=== PATIENT | female | born 1975 | race African-American/Black ===

== ENCOUNTER 2017-05-16 18:28 | Emergency (ER) | payer OTHER ==
[2017-05-16] MEDS ORDERED: KETOROLAC 30 MG/ML 1 ML VIAL IM STA (19:36)
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
--- NOTE | 2017-05-16 19:58 | XR ---
EXAMINATION: XR chest 2V DATE AND TIME: 05/16/2017 7:52 PM ORDERING PROVIDER: Arnav Cavazos MD CLINICAL INDICATION: Pain TECHNIQUE: PA and lateral COMPARISON: None. DESCRIPTION: The lungs are clear. The pleural spaces are negative. The cardiac silhouette is not enlarged. The mediastinal and pleural silhouettes are unremarkable. The skeletal structures are intact without focal findings. The soft tissues are unremarkable - other than bilateral prominent nipple shadows, more prominent on the right. IMPRESSION: NO ACUTE PROCESS.
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
[2017-05-16 20:52] VITALS: BP 134/59; PULSE 60; RESP 17; TEMP 98.7
== END 2017-05-16 20:59 | disposition home or self-care (01) ==
LOC: EC 18:28
DX: S16.1XXA Strain of muscle, fascia and tendon at neck level, initial encounter (principal); R07.89 Other chest pain; R51 Headache; F17.200 Nicotine dependence, unspecified, uncomplicated; V43.52XA Car driver injured in collision with other type car in traffic accident, initial encounter; Y92.89 Other specified places as the place of occurrence of the external cause
CPT/HCPCS: 71046; 72125; 99284; 96372; J1885

== ENCOUNTER 2017-09-30 14:29 | Observation (INO) | payer OTHER ==
[2017-09-30] MEDS ORDERED: SODIUM CHLORIDE 0.9% 500 ML IV STA (16:46)
[2017-09-30] MEDS ORDERED: SODIUM CHLORIDE 0.9% 1,000 ML IV STA (16:46)
[2017-09-30] MEDS ORDERED: MECLIZINE 12.5 MG TAB PO STA (16:46)
[2017-09-30 17:30] LABS: Amphetamine Screen,Urine Detected (NotDetected); Benzodiazepines Screen,Urine Detected (NotDetected); Cocaine Screen,Urine Not Detected (NotDetected); Opiate Screen,Urine Not Detected (NotDetected); Phencyclidine Screen,Urine Not Detected (NotDetected); Urn Cannabinoid Scrn Detected (NotDetected)
[2017-09-30 17:31] LABS: Barbiturate Screen,Urine Not Detected (NotDetected); Methadone Screen, Urine Not Detected (NotDetected); Oxycodone Screen, Urine Not Detected (NotDetected); Tricyclic Antidepressant,Urine Not Detected (NotDetected)
[2017-09-30 17:31] LABS: Basophils % (A) 0 %; Eosinophils # (A) 0.2 k/uL (0-0.7); Eosinophils % (A) 3 %; HCT 38.9 % (34.0-46.0); HGB 12.7 gm/dL (11.4-16.0); Lymphocytes # (A) 2.3 k/uL (1.0-4.8); Lymphocytes % (A) 30 %; MCH 30.1 pg (25.0-35.0); MCHC 32.6 g/dL (31.0-37.0); MCV 92.2 fL (80.0-100.0); Mean Platelet Volume 6.8; Monocytes # (A) 0.5 k/uL (0-1.0); Monocytes % (A) 6 %; Neutrophils # (A) 4.5 k/uL (1.3-7.7); Neutrophils % (A) 59 %; Platelet Count 267 k/uL (150-450); RBC 4.22 m/uL (3.80-5.40); RDW 12.9 % (11.5-15.5); WBC 7.6 k/uL (3.8-10.6)
[2017-09-30 17:32] LABS: Appearance,Urine Cloudy (Clear); Bilirubin,Urine Negative (Negative); Blood,Urine Negative (Negative); Color,Urine Yellow; Glucose,Urine (UA) Negative (Negative); Ketones,Urine Negative (Negative); Leukocyte Esterase,Urine Trace (Negative); Mucus,Urine Few /hpf; Nitrite,Urine Negative (Negative); Protein,Urine Negative (Negative); Specific Gravity,Urine 1.021 (1.001-1.035); Squamous Epithelial Cell,Urine 8 /hpf (0-4); Urobilinogen,Urine <2.0 mg/dL (<2.0); WBC,Urine 1 /hpf (0-5)
[2017-09-30 17:43] LABS: ALT 27 U/L (9-52); AST 18 U/L (14-36); Albumin 3.5 g/dL (3.5-5.0); Alkaline Phosphatase 52 U/L (38-126); Anion Gap 8 mmol/L; Blood Urea Nitrogen 8 mg/dL (7-17); Calcium 8.7 mg/dL (8.4-10.2); Carbon Dioxide 23 mmol/L (22-30); Chloride 108 mmol/L (98-107); Glucose 72 mg/dL (74-99); Potassium 3.7 mmol/L (3.5-5.1); Sodium 139 mmol/L (137-145); Total Bilirubin 0.5 mg/dL (0.2-1.3); Total Protein 5.9 g/dL (6.3-8.2)
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
[2017-09-30] MEDS ORDERED: SODIUM CHLORIDE 0.9% 1,000 ML IV ONE (18:07)
--- NOTE | 2017-09-30 18:39 | CT ---
EXAMINATION TYPE: CT brain wo con DATE OF EXAM: 09/30/2017 COMPARISON: NONE HISTORY: 42-year-old female with headache and pain, sinus congestion TECHNIQUE: Examination was done in axial plane without intravenous contrast. Coronal and sagittal r econstructions performed. CT DLP: 814.8 mGycm Automated exposure control for dose reduction was used. FINDINGS: There is no evidence of acute intracranial hemorrhage, acute ischemic changes, mass, mass-effect, or extra-axial fluid collection. There is no effacement of cerebral sulci or basal subarachnoid cister ns. There is no hydrocephalus. There is no midline shift. Jensen-white matter distinction is preserv ed. Paranasal sinuses will be reported separately. Mastoid air cells are well pneumatized. IMPRESSION: No acute intracranial abnormality seen.
--- NOTE | 2017-09-30 18:41 | CT ---
EXAMINATION TYPE: CT sinus wo con DATE OF EXAM: 09/30/2017 COMPARISON: NONE HISTORY: 42-year-old female complains of dizziness, headache, and sinus congestion. TECHNIQUE: Contiguous axial scanning of the paranasal sinuses without IV contrast. Coronal and sagitt al reconstructions performed. CT DLP: 703.7 mGycm Automated exposure control for dose reduction was used. FINDINGS: Mucosal thickening posterior right ethmoid air cells otherwise, there the frontal, left ethmoid, sphe noid, and maxillary sinuses are well-pneumatized. No air-fluid levels. No reactive mary-osteogenesis or destruction of the sinus [place]. Slight rightward nasal septal deviation. The osteomeatal complexes are patent. Orbits and globes are intact. IMPRESSION: ONLY MILD MUCOSAL THICKENING IN THE POSTERIOR RIGHT ETHMOID AIR CELLS AND SLIGHT RIGHTWARD NASAL SEPT AL DEVIATION. NO SIGNIFICANT PARANASAL SINUS DISEASE.
[2017-09-30] MEDS ORDERED: NALOXONE 0.4 MG/ML 1 ML VIAL IV PRN (19:09)
[2017-09-30] MEDS ORDERED: ACETAMINOPHEN TAB 325 MG TAB PO PRN (19:09)
[2017-09-30] MEDS ORDERED: ONDANSETRON 4 MG/2 ML VIAL IVP PRN (19:09)
[2017-09-30] MEDS ORDERED: MORPHINE SULFATE 2 MG/ML SYRINGE IV PRN (19:09)
[2017-09-30] MEDS ORDERED: ALPRAZolam 1 MG TAB PO PRN (19:14)
[2017-09-30] MEDS ORDERED: SODIUM CHLORIDE 0.9% 1,000 ML IV SCH (19:15)
[2017-09-30 20:46] VITALS: BMI 24.7
[2017-10-01 07:37] LABS: Basophils % (A) 0 %; Eosinophils # (A) 0.2 k/uL (0-0.7); Eosinophils % (A) 3 %; HCT 35.8 % (34.0-46.0); HGB 11.7 gm/dL (11.4-16.0); Lymphocytes % (A) 35 %; MCHC 32.6 g/dL (31.0-37.0); MCV 92.2 fL (80.0-100.0); Mean Platelet Volume 6.6; Monocytes # (A) 0.3 k/uL (0-1.0); Monocytes % (A) 6 %; Neutrophils % (A) 53 %; Platelet Count 264 k/uL (150-450); RBC 3.89 m/uL (3.80-5.40); WBC 5.8 k/uL (3.8-10.6)
[2017-10-01 07:44] LABS: Anion Gap 5 mmol/L; Blood Urea Nitrogen 6 mg/dL (7-17); Calcium 8.2 mg/dL (8.4-10.2); Carbon Dioxide 23 mmol/L (22-30); Chloride 111 mmol/L (98-107); Glucose 91 mg/dL (74-99); Potassium 3.7 mmol/L (3.5-5.1); Sodium 139 mmol/L (137-145)
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
[2017-10-01] MEDS ORDERED: FLUTICASONE 50MCG/SPRAY NASAL 16GM EA NOSTRIL SCH (09:00)
[2017-10-01] MEDS ORDERED: LORATADINE 10 MG TAB PO SCH (09:00)
[2017-10-01] MEDS ORDERED: CYPROHEPTADINE 4 MG TABLET PO SCH (09:00)
[2017-10-01] MEDS ORDERED: SODIUM CHLORIDE 0.65% NASAL SPRAY 44 ML BTL INTRANASAL SCH (09:00)
[2017-10-01] MEDS ORDERED: MULTIVITAMINS, THERA 1 EACH TAB PO SCH (12:00)
[2017-10-01 12:08] VITALS: BP 145/70; PULSE 57; RESP 18; TEMP 98.2
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
== END 2017-10-01 14:00 | disposition home or self-care (01) ==
LOC: EC 14:29 → 3OBS 19:06
PROVIDERS: ADMIT Hospitalist; ATTEND Hospitalist
DX: I95.1 Orthostatic hypotension (principal); E86.0 Dehydration; K21.9 Gastro-esophageal reflux disease without esophagitis; I10 Essential (primary) hypertension; F41.9 Anxiety disorder, unspecified; R51 Headache; R26.81 Unsteadiness on feet; R82.5 Elevated urine levels of drugs, medicaments and biological substances; G43.909 Migraine, unspecified, not intractable, without status migrainosus; F32.9 Major depressive disorder, single episode, unspecified; F17.200 Nicotine dependence, unspecified, uncomplicated; Z82.61 Family history of arthritis; Z83.3 Family history of diabetes mellitus; Z82.49 Family history of ischemic heart disease and other diseases of the circulatory system; Z84.89 Family history of other specified conditions; Z79.899 Other long term (current) drug therapy; Z79.51 Long term (current) use of inhaled steroids; Z87.828 Personal history of other (healed) physical injury and trauma
CPT/HCPCS: 96360 ×2; 99285 ×2; 36415; 93005; 80053; 80048; 84484; 85025 ×2; 81001; 80306; 70450; 70486; G0378 ×2

== ENCOUNTER 2018-07-25 13:34 | Emergency (ER) | payer OTHER ==
--- NOTE | 2018-07-25 15:43 | ED ---
General Adult HPI - General Chief complaint: Upper Respiratory Infection Stated complaint: sinus infection Time Seen by Provider: 07/25/18 14:23 Source: patient, RN notes reviewed, old records reviewed Mode of arrival: ambulatory Limitations: no limitations - History of Present Illness Initial comments: 42-year-old female patient presents ED approximately 3 weeks of waxing and waning maxillary sinus pressure. Patient also reports some nasal drainage. Patient denies any other acute complaints. Patient states that she is not . Systemic: Pt denies fatigue, myalgia, fever/chills, rash. Pt denies weakness, night sweats, weight loss. Neuro: Pt denies headache, visual disturbances, syncope or pre-syncope. HEENT: Pt denies ocular discharge or irritation, otalgia, rhinorrhea, pharyngitis or notable lymphadenopathy. Cardiopulmonary: Pt denies chest pain, SOB, heart palpitations, dyspnea on exertion. Abdominal/GI: Pt denies abdominal pain, n/v/d. : Pt denies dysuria, burning w/ urination, frequency/urgency. Denies new onset urinary or bowel incontinence. MSK: Pt denies myalgia, loss of strength or function in extremities. Neuro: Pt denies new onset weakness, paresthesias. - Related Data Home Medications Medication Instructions Recorded Confirmed ALPRAZolam [Xanax] 1 mg PO BID PRN 05/16/17 07/25/18 Cetirizine HCl [Zyrtec] 10 mg PO DAILY 09/30/17 07/25/18 Cyproheptadine [Cyproheptadine HCl] 4 mg PO DAILY 09/30/17 07/25/18 Fluticasone Nasal [place] [Flonase 2 spr EA NOSTRIL DAILY 09/30/17 07/25/18 Nasal [place]] Multivitamins, Thera [Multivitamin 1 tab PO DAILY 09/30/17 07/25/18 (formulary)] Sodium Chloride [Saline Nasal 2 spray EA NOSTRIL DAILY 09/30/17 07/25/18 [place]] Previous Rx's Medication Instructions Recorded Acetaminophen Tab [Tylenol] 650 mg PO Q6HR PRN tab 10/01/17 Amoxicillin/Potassium Clav 1 each PO Q12HR #20 tab 07/25/18 [Augmentin 875-125 Tablet] Allergies Allergy/AdvReac Type Severity Reaction Status Date / Time No Known Allergies Allergy Verified 07/25/18 13:59 Review of Systems ROS Statement: Those systems with pertinent positive or pertinent negative responses have been documented in the HPI. ROS Other: All systems not noted in ROS Statement are negative. Past Medical History Past Medical History: No Reported History, GERD/Reflux, Hypertension History of Any Multi-Drug Resistant Organisms: None Reported Past Surgical History: No Surgical Hx Reported Past Anesthesia/Blood Transfusion Reactions: No Reported Reaction Past Psychological History: Anxiety Smoking Status: Current some day smoker Past Alcohol Use History: None Reported Past Drug Use History: Marijuana - Past Family History Mother Family Medical History: Diabetes Mellitus, Hypertension, Rheumatoid Arthritis (RA) Additional Family Medical History / Comment(s): Lupus General Exam - General Exam Comments Initial Comments: Constitutional: NAD, AOX3, Pt has pleasant affect. HEENT: NC/AT, trachea midline, neck supple, no lymphadenopathy. Posterior pharynx non erythematous, without exudates. External ears appear normal, without discharge. Mucous membranes moist. Eyes PERRLA, EOM intact. There is no scleral icterus. No pallor noted. Maxillary pressure reproducible by palpation. Cardiopulmonary: RRR, no murmurs, rubs or gallops, no JVD noted. Lungs CTAB in anterior and posterior og. No peripheral edema. Abdominal exam: Abdomen soft and non-distended. Abdomen non-tender to palpation in all 4 quadrants. Bowel sounds active in LLQ. No hepatosplenomegaly. No ecchymosis Neuro: CN II-XII grossly intact. No nuchal rigidity. MSK: No posterior calf tenderness bilaterally, homans sign negative bilaterally. Posterior tibialis and radial pulse +2 bilaterally. Sensation intact in upper and lower extremities. Full active ROM in upper and lower extremities, 5/5 stregnth. Limitations: no limitations Course Vital Signs 07/25/18 13:57 Temperature 98.4 F Pulse Rate 77 Respiratory 20 Rate Blood Pressure 116/78 O2 Sat by Pulse 100 Oximetry Medical Decision Making - Medical Decision Making 42-year-old female patient presents ED approximately 3 weeks of waxing and waning maxillary sinus pressure. Patient also reports some nasal drainage. Patient denies any other acute complaints. Patient states that she is not . Patient was in stable, afebrile. Physical exam displayed medically sinus pressure reproducible upon palpation. Patient discharged with prescription for Augmentin. Patient to follow up with primary care provider 12 days. Patient return to ER physician worsens in anyway. Case discussed with Dr. Levy. Disposition Clinical Impression: Sinusitis Disposition: HOME SELF-CARE Condition: Stable Instructions (If sedation given, give patient instructions): Sinusitis (ED) Additional Instructions: Patient to adhere to previously discussed treatment plan and will take medication(s) as directed. Patient to follow up with PCP in 1-2 days. Patient to return to ED if symptoms do not improve. Please follow-up with primary care physician in one to 2 days. Please return to ER if condition worsens in anyway. Prescriptions: Amoxicillin/Potassium Clav [Augmentin 875-125 Tablet] 1 each PO Q12HR #20 tab Is patient prescribed a controlled substance at d/c from ED?: No Referrals: Nonstaff,Physician [Primary Care Provider] - 1-2 days
[2018-07-25 15:52] VITALS: BP 144/73; PULSE 65; RESP 16; TEMP 97.3
== END 2018-07-25 15:51 | disposition home or self-care (01) ==
LOC: EC 13:34
DX: J32.9 Chronic sinusitis, unspecified (principal); F17.200 Nicotine dependence, unspecified, uncomplicated; Z79.51 Long term (current) use of inhaled steroids; Z79.899 Other long term (current) drug therapy
CPT/HCPCS: 99283

== ENCOUNTER 2018-12-31 10:24 | Emergency (ER) | payer OTHER ==
[2018-12-31 10:30] VITALS: BP 137/86; PULSE 69; RESP 17; TEMP 97.9
--- NOTE | 2018-12-31 11:22 | ED ---
General Adult HPI - General Chief complaint: Vaginal Bleeding Stated complaint: female Time Seen by Provider: 12/31/18 10:32 Source: patient, RN notes reviewed, old records reviewed Mode of arrival: ambulatory Limitations: no limitations - History of Present Illness Initial comments: Patient is a 43-year-old female complains of vaginal burning and itching and erythema. She reports some extra past 2 days. Symptoms started she had some diarrhea which she believes that she went away. She denies any dysuria at this time. She reports that there is a possibility of STDs. Patient states that she has had no fevers or chills, denies any abdominal pain at this time. - Related Data Home Medications Medication Instructions Recorded Confirmed ALPRAZolam [Xanax] 1 mg PO BID PRN 05/16/17 12/31/18 Multivitamins, Thera [Multivitamin 1 tab PO DAILY 09/30/17 12/31/18 (formulary)] Baclofen [Lioresal] 10 mg PO TID PRN 12/31/18 12/31/18 Cyanocobalamin (Vitamin B-12) 1,000 mcg PO DAILY 12/31/18 12/31/18 [Vitamin B-12] traZODone HCL 150 mg PO HS 12/31/18 12/31/18 Previous Rx's Medication Instructions Recorded Clotrimazole [Clotrimazole 2% (3 1 applicator VAGINAL DAILY 3 Days 12/31/18 day)] Fluconazole [Diflucan] 150 mg PO ONCE #3 tab 12/31/18 Allergies Allergy/AdvReac Type Severity Reaction Status Date / Time No Known Allergies Allergy Verified 12/31/18 10:52 Review of Systems ROS Statement: Those systems with pertinent positive or pertinent negative responses have been documented in the HPI. ROS Other: All systems not noted in ROS Statement are negative. Past Medical History Past Medical History: No Reported History, GERD/Reflux, Hypertension History of Any Multi-Drug Resistant Organisms: None Reported Past Surgical History: No Surgical Hx Reported Past Anesthesia/Blood Transfusion Reactions: No Reported Reaction Past Psychological History: Anxiety Smoking Status: Current some day smoker Past Alcohol Use History: None Reported Past Drug Use History: Marijuana - Past Family History Mother Family Medical History: Diabetes Mellitus, Hypertension, Rheumatoid Arthritis (RA) Additional Family Medical History / Comment(s): Lupus General Exam - General Exam Comments Initial Comments: 43-year-old female. Alert and oriented. No significant distress. Limitations: no limitations General appearance: alert, in no apparent distress Head exam: Present: atraumatic, normocephalic, normal inspection Eye exam: Present: normal appearance, PERRL, EOMI. Absent: scleral icterus, conjunctival injection, periorbital swelling ENT exam: Present: normal exam, mucous membranes moist Neck exam: Present: normal inspection. Absent: tenderness, meningismus, lymphadenopathy Respiratory exam: Present: normal lung sounds bilaterally. Absent: respiratory distress, wheezes, rales, rhonchi, stridor Cardiovascular Exam: Present: regular rate, normal rhythm, normal heart sounds. Absent: systolic murmur, diastolic murmur, rubs, gallop, clicks GI/Abdominal exam: Present: soft, normal bowel sounds. Absent: distended, tenderness, guarding, rebound, rigid External exam: Present: normal external exam, erythema Speculum exam: Present: erythema, vaginal discharge (She has waited here in vaginal discharge.). Absent: normal speculum exam By manual exam: Present: normal by manual exam, cervical motion tenderness Extremities exam: Present: normal inspection, full ROM, normal capillary refill. Absent: tenderness, pedal edema, joint swelling, calf tenderness Back exam: Present: normal inspection Neurological exam: Present: alert, oriented X3, CN II-XII intact Psychiatric exam: Present: normal affect, normal mood Skin exam: Present: warm Course Vital Signs 12/31/18 10:26 Temperature 97.9 F Pulse Rate 69 Respiratory 17 Rate Blood Pressure 137/86 O2 Sat by Pulse 97 Oximetry Medical Decision Making - Medical Decision Making Patient's 43-year-old female presents today for concerns for vaginal itching, erythema. Patient reports possibly menses. She did have adherent white discharge over vaginal vault. Concern for initially used infection. Her Trichomonas test was positive. Patient was treated with Rocephin and Flagyl and azithromycin for dental referral STDs. Chlamydia and gonorrhea testing are pending. Urinalysis is negative for any significant infection. Discussed also discharging the Patient with a course for Diflucan for concerns for intravaginal yeast infection. Patient is history plan will comply. Discussed follow-up with PCP and [employer]. - Lab Data Lab Results 12/31/18 12/31/18 12/31/18 Range/Units 11:19 11:19 11:19 Urine Color Yellow Urine Appearance Cloudy H (Clear) Urine pH 7.5 (5.0-8.0) Ur Specific [place] 1.021 (1.001-1.035) Urine Protein Negative (Negative) Urine Glucose (UA) Negative (Negative) Urine Ketones Negative (Negative) Urine Blood Negative (Negative) Urine Nitrite Negative (Negative) Urine Bilirubin Negative (Negative) Urine Urobilinogen <2.0 (<2.0) mg/dL Ur Leukocyte Esterase Moderate H (Negative) Urine RBC 2 (0-5) /hpf Urine WBC 3 (0-5) /hpf Ur Squamous Epith Cells 7 H (0-4) /hpf Urine Bacteria Rare H (None) /hpf Urine Mucus Rare H (None) /hpf Urine HCG, Qual Not Detected (Not Detectd) Trichomonas Ag (Rapid) Positive H (Negative) Disposition Clinical Impression: Trichomonas infection, Yeast infection Disposition: HOME SELF-CARE Condition: Good Instructions (If sedation given, give patient instructions): Trichomoniasis (ED), Yeast Infection (ED) Additional Instructions: Please use medication as discussed. Please follow up with family doctor if symptoms have not improved over the next two days. Please return to the emergency room if your symptoms increase or worsen or for any other concerns. Patient should follow-up with your [employer] as well. No intercourse for the next 2 weeks. Patient should inform all sexual partners for concern for Trichomonas infection. Prescriptions: Clotrimazole [Clotrimazole 2% (3 day)] 1 applicator VAGINAL DAILY 3 Days Fluconazole [Diflucan] 150 mg PO ONCE #3 tab Is patient prescribed a controlled substance at d/c from ED?: No Referrals: None,Stated [Primary Care Provider] - 1-2 days Time of Disposition: 12:39
[2018-12-31] MEDS ORDERED: metroNIDAZOLE 500 MG TAB PO STA (12:20)
[2018-12-31] MEDS ORDERED: cefTRIAXone 250 MG VIAL IM STA (12:20)
[2018-12-31] MEDS ORDERED: AZITHROMYCIN 500 MG TAB PO STA (12:20)
[2018-12-31 12:23] LABS: Appearance,Urine Cloudy (Clear); Bacteria,Urine Rare /hpf; Bilirubin,Urine Negative (Negative); Blood,Urine Negative (Negative); Color,Urine Yellow; Glucose,Urine (UA) Negative (Negative); Ketones,Urine Negative (Negative); Leukocyte Esterase,Urine Moderate (Negative); Mucus,Urine Rare /hpf; Nitrite,Urine Negative (Negative); PH, Urine 7.5 (5.0-8.0); Protein,Urine Negative (Negative); RBC,Urine 2 /hpf (0-5); Specific Gravity,Urine 1.021 (1.001-1.035); Squamous Epithelial Cell,Urine 7 /hpf (0-4); Urobilinogen,Urine <2.0 mg/dL (<2.0)
[2019-01-01 14:04] LABS: C. trachomatis,PCR Negative (Neg,Equiv); Chlamydia trachomatis Source Vagina
[2019-01-01 14:22] LABS: N. gonorrhoeae,PCR Negative (Neg,Equiv); Neisseria Source Vagina
== END 2018-12-31 13:11 | disposition home or self-care (01) ==
LOC: EC 10:24
DX: A59.9 Trichomoniasis, unspecified (principal); B37.9 Candidiasis, unspecified; F41.9 Anxiety disorder, unspecified; F17.200 Nicotine dependence, unspecified, uncomplicated; Z79.899 Other long term (current) drug therapy
CPT/HCPCS: 81001; 81025; 87808; 87491; 87591; 87070; 99284; 96372; J0696

== ENCOUNTER 2019-04-27 17:20 | Emergency (ER) | payer OTHER ==
[2019-04-27 17:32] VITALS: RESP 18
--- NOTE | 2019-04-27 19:26 | XR ---
EXAMINATION TYPE: XR chest 2V DATE OF EXAM: 04/27/2019 COMPARISON: Prior chest x-ray 05/16/2017 HISTORY: Cough TECHNIQUE: Frontal and lateral views of the chest are obtained. FINDINGS: There is no focal air space opacity, pleural effusion, or pneumothorax seen. The cardiac silhouette size is within normal limits. The osseous structures are intact. Nodular density seen ov er the lower chest right greater than left likely representing nipple shadows and not well seen on to day's exam. IMPRESSION: No acute cardiopulmonary process.
--- NOTE | 2019-04-27 19:53 | ED ---
General Adult HPI - General Chief complaint: Upper Respiratory Infection Stated complaint: flu symptoms Time Seen by Provider: 04/27/19 17:33 Source: patient, RN notes reviewed, old records reviewed Mode of arrival: ambulatory Limitations: no limitations - History of Present Illness Initial comments: 44-year-old female patient presents to ED for chief complaint of cough congestion for the last 8 days. Patient also reports sore throat. Denies any fevers. Denies a chance of being . Denies any reason to have immunocompromise state. Denies any other complaints. Systemic: Pt denies fatigue, fever/chills, rash. Pt denies weakness, night sweats, weight loss. Neuro: Pt denies headache, visual disturbances, syncope or pre-syncope. HEENT: Pt denies ocular discharge or irritation, otalgia, rhinorrhea, or notable lymphadenopathy. Cardiopulmonary: Pt denies chest pain, SOB, heart palpitations, dyspnea on exertion. Abdominal/GI: Pt denies abdominal pain, n/v/d. : Pt denies dysuria, burning w/ urination, frequency/urgency. Denies new onset urinary or bowel incontinence. MSK: Pt denies myalgia, loss of strength or function in extremities. Neuro: Pt denies new onset weakness, paresthesias. - Related Data Home Medications Medication Instructions Recorded Confirmed ALPRAZolam [Xanax] 1 mg PO BID PRN 05/16/17 12/31/18 Multivitamins, Thera [Multivitamin 1 tab PO DAILY 09/30/17 12/31/18 (formulary)] Baclofen [Lioresal] 10 mg PO TID PRN 12/31/18 12/31/18 Cyanocobalamin (Vitamin B-12) 1,000 mcg PO DAILY 12/31/18 12/31/18 [Vitamin B-12] traZODone HCL 150 mg PO HS 12/31/18 12/31/18 Previous Rx's Medication Instructions Recorded Clotrimazole [Clotrimazole 2% (3 1 applicator VAGINAL DAILY 3 Days 12/31/18 day)] Fluconazole [Diflucan] 150 mg PO ONCE #3 tab 12/31/18 Allergies Allergy/AdvReac Type Severity Reaction Status Date / Time No Known Allergies Allergy Verified 04/27/19 17:28 Review of Systems ROS Statement: Those systems with pertinent positive or pertinent negative responses have been documented in the HPI. ROS Other: All systems not noted in ROS Statement are negative. Past Medical History Past Medical History: GERD/Reflux, Hypertension History of Any Multi-Drug Resistant Organisms: None Reported Past Surgical History: No Surgical Hx Reported Past Anesthesia/Blood Transfusion Reactions: No Reported Reaction Past Psychological History: Anxiety Smoking Status: Current every day smoker Past Alcohol Use History: None Reported Past Drug Use History: Marijuana - Past Family History Mother Family Medical History: Diabetes Mellitus, Hypertension, Rheumatoid Arthritis (RA) Additional Family Medical History / Comment(s): Lupus General Exam - General Exam Comments Initial Comments: Constitutional: NAD, AOX3, Pt has pleasant affect. HEENT: NC/AT, trachea midline, neck supple, no lymphadenopathy. Posterior pharynx mildly erythematous, without exudates. External ears appear normal, without discharge. Mucous membranes moist. Eyes PERRLA, EOM intact. There is no scleral icterus. No pallor noted. Cardiopulmonary: RRR, no murmurs, rubs or gallops, no JVD noted. Lungs CTAB in anterior and posterior og. No peripheral edema. Abdominal exam: Abdomen soft and non-distended. Abdomen non-tender to palpation in all 4 quadrants. Bowel sounds active in LLQ. No hepatosplenomegaly. No ecchymosis Neuro: CN II-XII grossly intact. No nuchal rigidity. No raccon eyes, no pierre sign, no hemotympanum. No cervical spinal tenderness. MSK: No posterior calf tenderness bilaterally, homans sign negative bilaterally. Posterior tibialis and radial pulse +2 bilaterally. Sensation intact in upper and lower extremities. Full active ROM in upper and lower extremities, 5/5 stregnth. Limitations: no limitations Course Vital Signs 04/27/19 17:28 Temperature 97.9 F Pulse Rate 80 Respiratory 18 Rate Blood Pressure 121/80 O2 Sat by Pulse 98 Oximetry Medical Decision Making - Medical Decision Making 44-year-old female patient presents to ED for chief complaint of cough c ongestion for the last 8 days. Patient also reports sore throat. Denies any fevers. Denies a chance of being . Denies any reason to have immunocompromise state. Denies any other complaints. Patient vital signs are stable, afebrile. Physical exam displayed mildly erythematous posterior pharynx. Influenza A and B are negative. Group A strep is negative. Urine displayed +1 ketones +1 protein. Chest x-ray is negative for acute process. Patient is likely transient viral syndrome, will be discharged to follow up with primary care provider. Further investigations including blood work ordered offered to patient she declined stating that she had labs drawn. Ago and they reportedly normal. Will follow up with primary tomorrow and will return to ER if condition worsens. Case discussed with Dr. Cavazos. - Lab Data Lab Results 04/27/19 04/27/19 04/27/19 Range/Units 18:57 18:57 19:52 Urine Color Urine Appearance (Clear) Urine pH (5.0-8.0) Ur Specific [place] (1.001-1.035) Urine Protein (Negative) Urine Glucose (UA) (Negative) Urine Ketones (Negative) Urine Blood (Negative) Urine Nitrite (Negative) Urine Bilirubin (Negative) Urine Urobilinogen (<2.0) mg/dL Ur Leukocyte Esterase (Negative) Urine RBC (0-5) /hpf Urine WBC (0-5) /hpf Ur Squamous Epith Cells (0-4) /hpf Urine Mucus (None) /hpf Urine HCG, Qual Not Detected (Not Detectd) Influenza Type A RNA Not Detected (Not Detectd) Influenza Type B (PCR) Not Detected (Not Detectd) Group A Strep Rapid Negative (Negative) 04/27/19 Range/Units 19:52 Urine Color Yellow Urine Appearance Cloudy H (Clear) Urine pH 6.5 (5.0-8.0) Ur Specific [place] 1.025 (1.001-1.035) Urine Protein 1+ H (Negative) Urine Glucose (UA) Negative (Negative) Urine Ketones 1+ H (Negative) Urine Blood Negative (Negative) Urine Nitrite Negative (Negative) Urine Bilirubin Negative (Negative) Urine Urobilinogen 2.0 (<2.0) mg/dL Ur Leukocyte Esterase Negative (Negative) Urine RBC 1 (0-5) /hpf Urine WBC 1 (0-5) /hpf Ur Squamous Epith Cells 15 H (0-4) /hpf Urine Mucus Many H (None) /hpf Urine HCG, Qual (Not Detectd) Influenza Type A RNA (Not Detectd) Influenza Type B (PCR) (Not Detectd) Group A Strep Rapid (Negative) Disposition Clinical Impression: Viral syndrome Disposition: HOME SELF-CARE Condition: Stable Instructions (If sedation given, give patient instructions): Viral Syndrome (ED) Additional Instructions: Follow-up with primary care provider tomorrow. Return to ER if condition worsens in any way. Is patient prescribed a controlled substance at d/c from ED?: No Referrals: Nonstaff,Physician [Primary Care Provider] - 1-2 days
[2019-04-27 20:09] LABS: Appearance,Urine Cloudy (Clear); Bilirubin,Urine Negative (Negative); Blood,Urine Negative (Negative); Color,Urine Yellow; Glucose,Urine (UA) Negative (Negative); Ketones,Urine 1+ (Negative); Leukocyte Esterase,Urine Negative (Negative); Mucus,Urine Many /hpf; Nitrite,Urine Negative (Negative); PH, Urine 6.5 (5.0-8.0); Protein,Urine 1+ (Negative); RBC,Urine 1 /hpf (0-5); Specific Gravity,Urine 1.025 (1.001-1.035); Squamous Epithelial Cell,Urine 15 /hpf (0-4); WBC,Urine 1 /hpf (0-5)
[2019-04-27 21:12] VITALS: BP 117/90; PULSE 71; TEMP 98
== END 2019-04-27 21:20 | disposition home or self-care (01) ==
LOC: EC 17:20
DX: B34.9 Viral infection, unspecified (principal); F41.9 Anxiety disorder, unspecified; I10 Essential (primary) hypertension; F17.200 Nicotine dependence, unspecified, uncomplicated; Z79.899 Other long term (current) drug therapy
CPT/HCPCS: 71046; 81001; 81025; 87081; 87430; 87502; 99284

== ENCOUNTER 2019-06-07 16:27 | Emergency (ER) | payer OTHER ==
[2019-06-07] MEDS ORDERED: ONDANSETRON 4 MG/2 ML VIAL IVP STA (17:04)
[2019-06-07] MEDS ORDERED: SODIUM CHLORIDE 0.9% 1,000 ML IV STA (17:04)
--- NOTE | 2019-06-07 18:07 | ED ---
General Adult HPI - General Chief complaint: Abdominal Pain Stated complaint: dizziness/eye & abdominal pain Source: patient, RN notes reviewed Mode of arrival: ambulatory Limitations: no limitations - History of Present Illness Initial comments: 44-year-old female presents to the emergency department for a chief complaint of abdominal pain. Patient states she has had abdominal pain for 9 months intermittently. States she has had diarrhea on and off for 9 months intermitten tly. Patient states she saw her primary care doctor today who scheduled her for an EGD and colonoscopy on June 13. She was also started on Protonix and antibiotics today. Patient states that she came today because she wants to get a tummy tuck but needs to figure out what is causing these issues first. She admits to nausea but denies vomiting. Patient has no other complaints at this time including shortness of breath, chest pain, abdominal pain, nausea or vomiting, headache, or visual changes. - Related Data Home Medications Medication Instructions Recorded Confirmed ALPRAZolam [Xanax] 1 mg PO BID PRN 05/16/17 12/31/18 Multivitamins, Thera [Multivitamin 1 tab PO DAILY 09/30/17 12/31/18 (formulary)] Baclofen [Lioresal] 10 mg PO TID PRN 12/31/18 12/31/18 Cyanocobalamin (Vitamin B-12) 1,000 mcg PO DAILY 12/31/18 12/31/18 [Vitamin B-12] traZODone HCL 150 mg PO HS 12/31/18 12/31/18 Previous Rx's Medication Instructions Recorded Clotrimazole [Clotrimazole 2% (3 1 applicator VAGINAL DAILY 3 Days 12/31/18 day)] Fluconazole [Diflucan] 150 mg PO ONCE #3 tab 12/31/18 Ondansetron [Zofran ODT] 4 mg PO Q8HR PRN #15 tab 06/07/19 Allergies Allergy/AdvReac Type Severity Reaction Status Date / Time No Known Allergies Allergy Verified 06/07/19 16:31 Review of Systems ROS Statement: Those systems with pertinent positive or pertinent negative responses have been documented in the HPI. ROS Other: All systems not noted in ROS Statement are negative. Past Medical History Past Medical History: GERD/Reflux, Hypertension History of Any Multi-Drug Resistant Organisms: None Reported Past Surgical History: No Surgical Hx Reported Past Anesthesia/Blood Transfusion Reactions: No Reported Reaction Past Psychological History: Anxiety Smoking Status: Current every day smoker Past Alcohol Use History: None Reported Past Drug Use History: Marijuana - Past Family History Mother Family Medical History: Diabetes Mellitus, Hypertension, Rheumatoid Arthritis (RA) Additional Family Medical History / Comment(s): Lupus General Exam Limitations: no limitations General appearance: alert, in no apparent distress Head exam: Present: atraumatic, normocephalic, normal inspection Eye exam: Present: normal appearance, PERRL, EOMI. Absent: scleral icterus, conjunctival injection, periorbital swelling ENT exam: Present: normal exam, mucous membranes moist Neck exam: Present: normal inspection, full ROM. Absent: tenderness, meningismus, lymphadenopathy Respiratory exam: Present: normal lung sounds bilaterally. Absent: respiratory distress, wheezes, rales, rhonchi, stridor Cardiovascular Exam: Present: regular rate, normal rhythm, normal heart sounds. Absent: systolic murmur, diastolic murmur, rubs, gallop, clicks GI/Abdominal exam: Present: soft, normal bowel sounds. Absent: distended, tenderness, guarding, rebound, rigid Neurological exam: Present: alert Course Vital Signs 06/07/19 06/07/19 16:28 18:47 Temperature 99.2 F 98.2 F Pulse Rate 92 83 Respiratory 20 18 Rate Blood Pressure 145/87 142/95 O2 Sat by Pulse 99 100 Oximetry Medical Decision Making - Medical Decision Making Vitals stable. Physical exam is unremarkable. Abdomen is nontender. Symptoms have been ongoing for 9 months. Patient had outpatient ultrasound of the gallbladder about 1-1/2 weeks ago which patient reports was normal. Report is not available to me. CBC is unremarkable. CMP shows minimal transaminitis otherwise unremarkable. Urinalysis does show evidence of dehydration, patient was given IV fluids. Patient is given Zofran and had significant improvement in symptoms. X-ray KUB shows an overall nonspecific but strongly favor nonobstructive bowel gas pattern. Image was reviewed by myself and Dr. Dukes. Given nontender abdomen and duration of symptoms CT was not obtained. Patient has an appointment for an EGD/colonoscopy in one week. In the meantime she was put on Protonix and Cipro by her doctor which she'll continue. Patient was unable to give stool sample in the emergency department so I did prescribe her an outpatient sample. She will follow up with primary care in 1-2 days. She will return for any worsening symptoms.I discussed this case with attending Dr. Dukes who agrees with this assessment and treatment plan. - Lab Data Result diagrams: 06/07/19 17:53 06/07/19 17:53 Lab Results 06/07/19 06/07/19 06/07/19 Range/Units 17:53 17:53 17:53 WBC 9.1 (3.8-10.6) k/uL RBC 4.85 (3.80-5.40) m/uL Hgb 13.7 (11.4-16.0) gm/dL Hct 43.2 (34.0-46.0) % MCV 88.9 (80.0-100.0) fL MCH 28.3 (25.0-35.0) pg MCHC 31.8 (31.0-37.0) g/dL RDW 13.1 (11.5-15.5) % Plt Count 308 (150-450) k/uL Neutrophils % 78 % Lymphocytes % 13 % Monocytes % 6 % Eosinophils % 1 % Basophils % 0 % Neutrophils # 7.2 (1.3-7.7) k/uL Lymphocytes # 1.2 (1.0-4.8) k/uL Monocytes # 0.5 (0-1.0) k/uL Eosinophils # 0.1 (0-0.7) k/uL Basophils # 0.0 (0-0.2) k/uL Sodium 137 (137-145) mmol/L Potassium 4.0 (3.5-5.1) mmol/L Chloride 100 (98-107) mmol/L Carbon Dioxide 26 (22-30) mmol/L Anion Gap 11 mmol/L BUN 8 (7-17) mg/dL Creatinine 0.69 (0.52-1.04) mg/dL Est GFR (CKD-EPI)AfAm >90 (>60 ml/min/1.73 sqM) Est GFR (CKD-EPI)NonAf >90 (>60 ml/min/1.73 sqM) Glucose 95 (74-99) mg/dL Calcium 9.8 (8.4-10.2) mg/dL Total Bilirubin 0.5 (0.2-1.3) mg/dL AST 45 H (14-36) U/L ALT 40 H (4-34) U/L Alkaline Phosphatase 119 (38-126) U/L Total Protein 8.4 H (6.3-8.2) g/dL Albumin 4.8 (3.5-5.0) g/dL Amylase 99 (30-110) U/L Lipase 65 (23-300) U/L Urine Color Yellow Urine Appearance Cloudy H (Clear) Urine pH 5.5 (5.0-8.0) Ur Specific [place] 1.024 (1.001-1.035) Urine Protein Trace H (Negative) Urine Glucose (UA) Negative (Negative) Urine Ketones 1+ H (Negative) Urine Blood Negative (Negative) Urine Nitrite Negative (Negative) Urine Bilirubin Negative (Negative) Urine Urobilinogen <2.0 (<2.0) mg/dL Ur Leukocyte Esterase Negative (Negative) Urine RBC 1 (0-5) /hpf Urine WBC 4 (0-5) /hpf Ur Squamous Epith Cells 4 (0-4) /hpf Urine Mucus Many H (None) /hpf Urine HCG, Qual (Not Detectd) 06/07/19 Range/Units 17:53 WBC (3.8-10.6) k/uL RBC (3.80-5.40) m/uL Hgb (11.4-16.0) gm/dL Hct (34.0-46.0) % MCV (80.0-100.0) fL MCH (25.0-35.0) pg MCHC (31.0-37.0) g/dL RDW (11.5-15.5) % Plt Count (150-450) k/uL Neutrophils % % Lymphocytes % % Monocytes % % Eosinophils % % Basophils % % Neutrophils # (1.3-7.7) k/uL Lymphocytes # (1.0-4.8) k/uL Monocytes # (0-1.0) k/uL Eosinophils # (0-0.7) k/uL Basophils # (0-0.2) k/uL Sodium (137-145) mmol/L Potassium (3.5-5.1) mmol/L Chloride (98-107) mmol/L Carbon Dioxide (22-30) mmol/L Anion Gap mmol/L BUN (7-17) mg/dL Creatinine (0.52-1.04) mg/dL Est GFR (CKD-EPI)AfAm (>60 ml/min/1.73 sqM) Est GFR (CKD-EPI)NonAf (>60 ml/min/1.73 sqM) Glucose (74-99) mg/dL Calcium (8.4-10.2) mg/dL Total Bilirubin (0.2-1.3) mg/dL AST (14-36) U/L ALT (4-34) U/L Alkaline Phosphatase (38-126) U/L Total Protein (6.3-8.2) g/dL Albumin (3.5-5.0) g/dL Amylase (30-110) U/L Lipase (23-300) U/L Urine Color Urine Appearance (Clear) Urine pH (5.0-8.0) Ur Specific [place] (1.001-1.035) Urine Protein (Negative) Urine Glucose (UA) (Negative) Urine Ketones (Negative) Urine Blood (Negative) Urine Nitrite (Negative) Urine Bilirubin (Negative) Urine Urobilinogen (<2.0) mg/dL Ur Leukocyte Esterase (Negative) Urine RBC (0-5) /hpf Urine WBC (0-5) /hpf Ur Squamous Epith Cells (0-4) /hpf Urine Mucus (None) /hpf Urine HCG, Qual Not Detected (Not Detectd) Disposition Clinical Impression: Nausea Disposition: HOME SELF-CARE Condition: Good Instructions (If sedation given, give patient instructions): Acute Nausea and Vomiting (ED) Additional Instructions: Please follow up with primary care in 1-2 days. Attend your appointment for your colonoscopy. Take Zofran for nausea. This was prescribed to [facility] on . Return to the emergency department if you have any worsening symptoms. Prescriptions: Ondansetron [Zofran ODT] 4 mg PO Q8HR PRN #15 tab PRN Reason: Nausea Is patient prescribed a controlled substance at d/c from ED?: No Referrals: Nonstaff,Physician [Primary Care Provider] - 1-2 days Time of Disposition: 18:57
[2019-06-07 18:16] LABS: Appearance,Urine Cloudy (Clear); Bilirubin,Urine Negative (Negative); Blood,Urine Negative (Negative); Color,Urine Yellow; Glucose,Urine (UA) Negative (Negative); Ketones,Urine 1+ (Negative); Leukocyte Esterase,Urine Negative (Negative); Mucus,Urine Many /hpf; Nitrite,Urine Negative (Negative); PH, Urine 5.5 (5.0-8.0); Protein,Urine Trace (Negative); RBC,Urine 1 /hpf (0-5); Specific Gravity,Urine 1.024 (1.001-1.035); Squamous Epithelial Cell,Urine 4 /hpf (0-4); Urobilinogen,Urine <2.0 mg/dL (<2.0); WBC,Urine 4 /hpf (0-5)
[2019-06-07 18:17] LABS: Basophils % (A) 0 %; Eosinophils # (A) 0.1 k/uL (0-0.7); Eosinophils % (A) 1 %; HCT 43.2 % (34.0-46.0); HGB 13.7 gm/dL (11.4-16.0); Lymphocytes # (A) 1.2 k/uL (1.0-4.8); Lymphocytes % (A) 13 %; MCH 28.3 pg (25.0-35.0); MCHC 31.8 g/dL (31.0-37.0); MCV 88.9 fL (80.0-100.0); Mean Platelet Volume 7.5; Monocytes # (A) 0.5 k/uL (0-1.0); Monocytes % (A) 6 %; Neutrophils # (A) 7.2 k/uL (1.3-7.7); Neutrophils % (A) 78 %; Platelet Count 308 k/uL (150-450); RBC 4.85 m/uL (3.80-5.40); RDW 13.1 % (11.5-15.5); WBC 9.1 k/uL (3.8-10.6)
[2019-06-07 18:18] LABS: ALT 40 U/L (4-34); AST 45 U/L (14-36); African American GFR (CKD) >90 (>60 ml/min/1.73 sqM); Albumin 4.8 g/dL (3.5-5.0); Alkaline Phosphatase 119 U/L (38-126); Amylase 99 U/L (30-110); Anion Gap 11 mmol/L; Blood Urea Nitrogen 8 mg/dL (7-17); Calcium 9.8 mg/dL (8.4-10.2); Carbon Dioxide 26 mmol/L (22-30); Chloride 100 mmol/L (98-107); Glucose 95 mg/dL (74-99); Non-African American GFR(CKD) >90 (>60 ml/min/1.73 sqM); Sodium 137 mmol/L (137-145); Total Bilirubin 0.5 mg/dL (0.2-1.3); Total Protein 8.4 g/dL (6.3-8.2)
--- NOTE | 2019-06-07 18:23 | XR ---
EXAMINATION TYPE: XR KUB DATE OF EXAM: 06/07/2019 6:14 PM CLINICAL HISTORY: Abdominal pain per order. Diarrhea for a few months. TECHNIQUE: Two Upright KUB images of the abdomen are obtained. COMPARISON: None. FINDINGS: Air-fluid levels seen in mildly prominent stomach. Some paucity of bowel gas. Patchy gas noted in nondistended small and large bowel loops central abdomen. Artifact overlies pelvis presumed related to clothing material. Visualized lung bases are clear. Partial visualization of bra strap. No suspicious calcifications. No pneumoperitoneum. Osseous structures intact. IMPRESSION: Suboptimal study, overall nonspecific but strongly favor nonobstructive bowel gas pattern .
[2019-06-07 18:50] VITALS: BP 142/95; PULSE 83; RESP 18; TEMP 98.2
== END 2019-06-07 19:25 | disposition home or self-care (01) ==
LOC: EC 16:27
DX: R11.0 Nausea (principal); E86.0 Dehydration; R74.0 Nonspecific elevation of levels of transaminase and lactic acid dehydrogenase [LDH]; R10.9 Unspecified abdominal pain; R19.7 Diarrhea, unspecified; F41.9 Anxiety disorder, unspecified; F17.200 Nicotine dependence, unspecified, uncomplicated; Z79.899 Other long term (current) drug therapy; Z87.19 Personal history of other diseases of the digestive system
CPT/HCPCS: 36415; 80053; 82150; 83690; 85025; 81001; 81025; 74018; 99284; 96374; 96361; J2405

== ENCOUNTER 2019-06-13 21:14 | Emergency (ER) | payer OTHER ==
--- NOTE | 2019-06-13 21:32 | ED ---
General Adult HPI - General Chief complaint: Dizziness Stated complaint: dizziness/diarrhea Time Seen by Provider: 06/13/19 21:31 Source: patient Mode of arrival: ambulatory Limitations: no limitations - History of Present Illness Initial comments: Phylicia is a pleasant 44-year-old female who presents the ER today for reevaluation to symptoms she began experiencing approximately 10 days ago. Patient reports that whenever she eats any type of solid food at all she gets abdominal cramping, bloating, explosive diarrhea a flushing sensation in the hea dache. Patient reports the symptoms began last week. She cannot identify any specific type of food or fluid causes that she feels it happens with all food. Patient states she is able tolerate water. Patient denies any associated fevers chills chest pain or shortness of breath. Patient denies any recent illness, suspicious food intake foreign travel. She denies any unusual weight gain or weight loss. Denies any urinary symptoms. - Related Data Home Medications Medication Instructions Recorded Confirmed ALPRAZolam [Xanax] 1 mg PO BID PRN 05/16/17 12/31/18 Multivitamins, Thera [Multivitamin 1 tab PO DAILY 09/30/17 12/31/18 (formulary)] Baclofen [Lioresal] 10 mg PO TID PRN 12/31/18 12/31/18 Cyanocobalamin (Vitamin B-12) 1,000 mcg PO DAILY 12/31/18 12/31/18 [Vitamin B-12] traZODone HCL 150 mg PO HS 12/31/18 12/31/18 Previous Rx's Medication Instructions Recorded Clotrimazole [Clotrimazole 2% (3 1 applicator VAGINAL DAILY 3 Days 12/31/18 day)] Fluconazole [Diflucan] 150 mg PO ONCE #3 tab 12/31/18 Ondansetron [Zofran ODT] 4 mg PO Q8HR PRN #15 tab 06/07/19 Allergies Allergy/AdvReac Type Severity Reaction Status Date / Time No Known Allergies Allergy Verified 06/13/19 21:21 Review of Systems ROS Statement: Those systems with pertinent positive or pertinent negative responses have been documented in the HPI. ROS Other: All systems not noted in ROS Statement are negative. Past Medical History Past Medical History: GERD/Reflux, Hypertension History of Any Multi-Drug Resistant Organisms: None Reported Past Surgical History: No Surgical Hx Reported Past Anesthesia/Blood Transfusion Reactions: No Reported Reaction Past Psychological History: Anxiety Smoking Status: Current every day smoker Past Alcohol Use History: None Reported Past Drug Use History: Marijuana - Past Family History Mother Family Medical History: Diabetes Mellitus, Hypertension, Rheumatoid Arthritis (RA) Additional Family Medical History / Comment(s): Lupus General Exam - General Exam Comments Initial Comments: Physical Exam GENERAL: Patient is well-developed and well-nourished. Patient is nontoxic and well- hydrated and is in no distress. HENT: Normocephalic, Atraumatic. EYES: PERRL, EOMI PULMONARY: Unlabored respirations. No audible rales rhonchi or wheezing was noted. CARDIOVASCULAR: There is a regular rate and rhythm without any murmurs gallops or rubs. ABDOMEN: Soft and nontender with normal bowel sounds. SKIN: Skin is clear with no lesions or rashes and otherwise unremarkable. : Deferred NEUROLOGIC: Patient is alert and oriented x3. Moving all extremities spontaneously MUSCULOSKELETAL: Normal extremities with adequate strength and full range of motion. No lower extremity swelling or edema. No calf tenderness. PSYCHIATRIC: Normal psychiatric evaluation. 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-type tumor syndrome as the patient has explosive diarrhea flushing with eating Labs are obtained, mild hypokalemia likely related to diarrhea and decreased by mouth intake Computed tomography scan was ordered but there were no acute findings of signs of tumors anywhere Patient is scheduled for a colonoscopy, she was scheduled for today however due to scheduling conflict her coloscopy was rescheduled for the of this month Results were discussed with the patient, patient was encouraged to keep a food diary to see if she can identify any foods any symptoms worsen the present her body tolerates better patient was also advised to follow-up with the customer support manager as scheduled for her colonoscopy and return to the ER if she has any recurrent symptoms or develops any new or concerning symptoms. All questions pertaining care were answered the best of my ability the patient was discharged home in stable condition. - Lab Data Result diagrams: 06/13/19 22:06 06/13/19 22:06 Lab Results 06/13/19 06/13/19 06/13/19 Range/Units 22:06 22:06 22:06 WBC 7.2 (3.8-10.6) k/uL RBC 4.81 (3.80-5.40) m/uL Hgb 13.8 (11.4-16.0) gm/dL Hct 42.6 (34.0-46.0) % MCV 88.6 (80.0-100.0) fL MCH 28.7 (25.0-35.0) pg MCHC 32.4 (31.0-37.0) g/dL RDW 12.8 (11.5-15.5) % Plt Count 332 (150-450) k/uL Neutrophils % 61 % Lymphocytes % 26 % Monocytes % 8 % Eosinophils % 1 % Basophils % 0 % Neutrophils # 4.4 (1.3-7.7) k/uL Lymphocytes # 1.9 (1.0-4.8) k/uL Monocytes # 0.6 (0-1.0) k/uL Eosinophils # 0.1 (0-0.7) k/uL Basophils # 0.0 (0-0.2) k/uL Sodium (137-145) mmol/L Potassium (3.5-5.1) mmol/L Chloride (98-107) mmol/L Carbon Dioxide (22-30) mmol/L Anion Gap mmol/L BUN (7-17) mg/dL Creatinine (0.52-1.04) mg/dL Est GFR (CKD-EPI)AfAm (>60 ml/min/1.73 sqM) Est GFR (CKD-EPI)NonAf (>60 ml/min/1.73 sqM) Glucose (74-99) mg/dL Plasma Lactic Acid Ebenezer (0.7-2.0) mmol/L Calcium (8.4-10.2) mg/dL Total Bilirubin (0.2-1.3) mg/dL AST (14-36) U/L ALT (4-34) U/L Alkaline Phosphatase (38-126) U/L Total Protein (6.3-8.2) g/dL Albumin (3.5-5.0) g/dL Amylase (30-110) U/L Lipase (23-300) U/L Urine Color Light Yellow Urine Appearance Clear (Clear) Urine pH 6.0 (5.0-8.0) Ur Specific Winter 1.003 (1.001-1.035) Urine Protein Negative (Negative) Urine Glucose (UA) Negative (Negative) Urine Ketones 1+ H (Negative) Urine Blood Moderate H (Negative) Urine Nitrite Negative (Negative) Urine Bilirubin Negative (Negative) Urine Urobilinogen <2.0 (<2.0) mg/dL Ur Leukocyte Esterase Negative (Negative) Urine RBC 3 (0-5) /hpf Urine WBC 5 (0-5) /hpf Ur Squamous Epith Cells 2 (0-4) /hpf Urine Bacteria Rare H (None) /hpf Urine Yeast (Budding) Occasional H (None) /hpf Urine HCG, Qual Not Detected (Not Detectd) 06/13/19 06/13/19 Range/Units 22:06 22:06 WBC (3.8-10.6) k/uL RBC (3.80-5.40) m/uL Hgb (11.4-16.0) gm/dL Hct (34.0-46.0) % MCV (80.0-100.0) fL MCH (25.0-35.0) pg MCHC (31.0-37.0) g/dL RDW (11.5-15.5) % Plt Count (150-450) k/uL Neutrophils % % Lymphocytes % % Monocytes % % Eosinophils % % Basophils % % Neutrophils # (1.3-7.7) k/uL Lymphocytes # (1.0-4.8) k/uL Monocytes # (0-1.0) k/uL Eosinophils # (0-0.7) k/uL Basophils # (0-0.2) k/uL Sodium 135 L (137-145) mmol/L Potassium 3.4 L (3.5-5.1) mmol/L Chloride 97 L (98-107) mmol/L Carbon Dioxide 25 (22-30) mmol/L Anion Gap 13 mmol/L BUN 6 L (7-17) mg/dL Creatinine 0.63 (0.52-1.04) mg/dL Est GFR (CKD-EPI)AfAm >90 (>60 ml/min/1.73 sqM) Est GFR (CKD-EPI)NonAf >90 (>60 ml/min/1.73 sqM) Glucose 88 (74-99) mg/dL Plasma Lactic Acid Ebenezer 1.6 (0.7-2.0) mmol/L Calcium 9.7 (8.4-10.2) mg/dL Total Bilirubin 0.6 (0.2-1.3) mg/dL AST 34 (14-36) U/L ALT 35 H (4-34) U/L Alkaline Phosphatase 101 (38-126) U/L Total Protein 8.4 H (6.3-8.2) g/dL Albumin 4.8 (3.5-5.0) g/dL Amylase 83 (30-110) U/L Lipase 101 (23-300) U/L Urine Color Urine Appearance (Clear) Urine pH (5.0-8.0) Ur Specific Winter (1.001-1.035) Urine Protein (Negative) Urine Glucose (UA) (Negative) Urine Ketones (Negative) Urine Blood (Negative) Urine Nitrite (Negative) Urine Bilirubin (Negative) Urine Urobilinogen (<2.0) mg/dL Ur Leukocyte Esterase (Negative) Urine RBC (0-5) /hpf Urine WBC (0-5) /hpf Ur Squamous Epith Cells (0-4) /hpf Urine Bacteria (None) /hpf Urine Yeast (Budding) (None) /hpf Urine HCG, Qual (Not Detectd) Disposition Clinical Impression: Abdominal pain, Diarrhea, Flushing Disposition: HOME SELF-CARE Condition: Stable Additional Instructions: Follow up for Colonoscopy as scheduled Drink fluids and stay hydrated Follow up with your care doctor next week for reevaluation Return to the emergency department for any worsening symptoms or development of any new or concerning symptoms Is patient prescribed a controlled substance at d/c from ED?: No Referrals: None,Stated [Primary Care Provider] - 1-2 days
[2019-06-13] MEDS ORDERED: SODIUM CHLORIDE 0.9% 1,000 ML IV STA (21:46)
[2019-06-13 22:30] LABS: Basophils % (A) 0 %; Eosinophils # (A) 0.1 k/uL (0-0.7); Eosinophils % (A) 1 %; HCT 42.6 % (34.0-46.0); HGB 13.8 gm/dL (11.4-16.0); Lymphocytes # (A) 1.9 k/uL (1.0-4.8); Lymphocytes % (A) 26 %; MCH 28.7 pg (25.0-35.0); MCHC 32.4 g/dL (31.0-37.0); MCV 88.6 fL (80.0-100.0); Mean Platelet Volume 7.5; Monocytes # (A) 0.6 k/uL (0-1.0); Monocytes % (A) 8 %; Neutrophils # (A) 4.4 k/uL (1.3-7.7); Neutrophils % (A) 61 %; Platelet Count 332 k/uL (150-450); RBC 4.81 m/uL (3.80-5.40); RDW 12.8 % (11.5-15.5); WBC 7.2 k/uL (3.8-10.6)
[2019-06-13 22:31] LABS: Appearance,Urine Clear (Clear); Bacteria,Urine Rare /hpf; Bilirubin,Urine Negative (Negative); Blood,Urine Moderate (Negative); Budding Yeast,Urine Occasional /hpf; Color,Urine Light Yellow; Glucose,Urine (UA) Negative (Negative); Ketones,Urine 1+ (Negative); Leukocyte Esterase,Urine Negative (Negative); Nitrite,Urine Negative (Negative); Protein,Urine Negative (Negative); RBC,Urine 3 /hpf (0-5); Specific Gravity,Urine 1.003 (1.001-1.035); Squamous Epithelial Cell,Urine 2 /hpf (0-4); Urobilinogen,Urine <2.0 mg/dL (<2.0); WBC,Urine 5 /hpf (0-5)
[2019-06-13] MEDS ORDERED: IOPAMIDOL CONTRAST (ORAL USE) VIAL PO PRN (22:37)
[2019-06-13 22:57] LABS: ALT 35 U/L (4-34); AST 34 U/L (14-36); African American GFR (CKD) >90 (>60 ml/min/1.73 sqM); Albumin 4.8 g/dL (3.5-5.0); Alkaline Phosphatase 101 U/L (38-126); Amylase 83 U/L (30-110); Anion Gap 13 mmol/L; Blood Urea Nitrogen 6 mg/dL (7-17); Calcium 9.7 mg/dL (8.4-10.2); Carbon Dioxide 25 mmol/L (22-30); Chloride 97 mmol/L (98-107); Glucose 88 mg/dL (74-99); Non-African American GFR(CKD) >90 (>60 ml/min/1.73 sqM); Potassium 3.4 mmol/L (3.5-5.1); Sodium 135 mmol/L (137-145); Total Bilirubin 0.6 mg/dL (0.2-1.3); Total Protein 8.4 g/dL (6.3-8.2)
--- NOTE | 2019-06-14 00:51 | CT ---
EXAMINATION TYPE: CT ChestAbdPelvis w con DATE OF EXAM: 06/14/2019 COMPARISON: HISTORY: Abdominal pain CT DLP: 1039.2 mGycm Automated exposure control for dose reduction was used. CONTRAST: Performed with IV Contrast, patient injected with 100 mL of Isovue 300. CT scan of the chest abdomen pelvis. Multiple axial sections were obtained from the thoracic inlet to the floor the pelvis with intravenou s contrast. There is oral contrast. The lungs are clear of infiltrate. There is no evidence of a pulmonary mass. There is no pleural effu alfonso. There is no pericardial effusion. There are no hilar masses. There is no mediastinal adenopathy . Thoracic aorta is intact. There is no aneurysm or dissection. Liver spleen pancreas stomach gallbladder appear normal. Bile ducts are not dilated. There is no adrenal mass. Kidneys show satisfactory contrast opacification. There is no hydronephrosi s. Bladder distends smoothly. There is no inguinal hernia. There is no free fluid in the pelvis. Ther e is no evidence of a pelvic mass. There is no mesenteric edema. There is no ascites or free air. The re is no evidence of a bowel obstruction. Appendix not definitely seen. No sign of thickened appendix . There are multiple rounded densities in the subcutaneous fat over left and right buttocks consistent with injection sites. Thoracic and lumbar vertebra have normal spacing and alignment. There is no compression fracture. The bony pelvis appears intact. Uterus is retroverted. The ribs appear intact. IMPRESSION: Negative CT scan chest abdomen pelvis. I do not see a cause for abdominal pain. Injection granulomas noted in both buttocks.
[2019-06-14 01:57] VITALS: BP 139/92; PULSE 65; RESP 17; TEMP 98.7
== END 2019-06-14 02:21 | disposition home or self-care (01) ==
LOC: EC 21:14
DX: R19.7 Diarrhea, unspecified (principal); R10.9 Unspecified abdominal pain; R23.2 Flushing; R42 Dizziness and giddiness; E87.6 Hypokalemia; I10 Essential (primary) hypertension; F41.9 Anxiety disorder, unspecified; F17.200 Nicotine dependence, unspecified, uncomplicated; Z79.899 Other long term (current) drug therapy
CPT/HCPCS: 36415; 80053; 82150; 83605; 83690; 85025; 81001; 81025; 71260; 74177; 99284; 96360; Q9967

== ENCOUNTER 2019-10-18 16:17 | Emergency (ER) | payer OTHER ==
--- NOTE | 2019-10-18 17:25 | ED ---
Extremity Problem HPI - General Chief complaint: Extremity Problem,Nontraumatic Stated complaint: swelling feet and ankles from recent cosmetic surg Time Seen by Provider: 10/18/19 16:40 Source: patient Mode of arrival: ambulatory Limitations: no limitations - History of Present Illness Initial comments: Patient is a 44-year-old female presenting to the emergency Department with complaints of bilateral ankle swelling for the past 2 days. Patient states she recently had a tummy tuck as well as a breast augmentation done 1 month ago. She states she has been recovering well. She had a follow-up with her surgeon last week and her incisions look great. She denies any recent fever, chills, chest pain, shortness of breath. States she has to sleep upright in a recliner for the first 9 weeks after her procedure. She states that couple days ago she noticed she had some swelling around her ankles and got concerned. Patient states she called her doctor and they recommended her going to the ER. She denies any pain in her calf, redness. She states she has not been able to get up and walk around very much and is normally very active. She denies any new medications. - Related Data Home Medications Medication Instructions Recorded Confirmed ALPRAZolam [Xanax] 1 mg PO BID PRN 05/16/17 12/31/18 Multivitamins, Thera [Multivitamin 1 tab PO DAILY 09/30/17 12/31/18 (formulary)] Baclofen [Lioresal] 10 mg PO TID PRN 12/31/18 12/31/18 Cyanocobalamin (Vitamin B-12) 1,000 mcg PO DAILY 12/31/18 12/31/18 [Vitamin B-12] traZODone HCL 150 mg PO HS 12/31/18 12/31/18 Previous Rx's Medication Instructions Recorded Clotrimazole [Clotrimazole 2% (3 1 applicator VAGINAL DAILY 3 Days 12/31/18 day)] Fluconazole [Diflucan] 150 mg PO ONCE #3 tab 12/31/18 Ondansetron [Zofran ODT] 4 mg PO Q8HR PRN #15 tab 06/07/19 Allergies Allergy/AdvReac Type Severity Reaction Status Date / Time No Known Allergies Allergy Verified 10/18/19 16:32 Review of Systems ROS Statement: Those systems with pertinent positive or pertinent negative responses have been documented in the HPI. ROS Other: All systems not noted in ROS Statement are negative. Past Medical History Past Medical History: GERD/Reflux, Hypertension History of Any Multi-Drug Resistant Organisms: None Reported Past Surgical History: Breast Surgery Additional Past Surgical History / Comment(s): tummy tuck Past Anesthesia/Blood Transfusion Reactions: No Reported Reaction Past Psychological History: Anxiety Smoking Status: Former smoker Past Alcohol Use History: None Reported Past Drug Use History: Marijuana - Past Family History Mother Family Medical History: Diabetes Mellitus, Hypertension, Rheumatoid Arthritis (RA) Additional Family Medical History / Comment(s): Lupus General Exam - General Exam Comments Initial Comments: GENERAL: Well-appearing, well-nourished and in no acute distress. HEAD: Atraumatic, normocephalic. EYES: Pupils equal round and reactive to light, extraocular movements intact, sclera anicteric, conjunctiva are normal. ENT: TMs normal, nares patent, oropharynx clear without exudates. Moist mucous membranes. NECK: Normal range of motion, supple without lymphadenopathy or JVD. LUNGS: Breath sounds clear to auscultation bilaterally and equal. No wheezes rales or rhonchi. HEART: Regular rate and rhythm without murmurs, rubs or gallops. ABDOMEN: Soft, nontender, normoactive bowel sounds. No guarding, no rebound. No masses appreciated. Surgical incision on the lower abdomen looks clean and dry, no signs of infection. : Deferred EXTREMITIES: Normal range of motion, no pitting edema. Patient has fairly mild swelling present on bilateral ankles, she is neurovascular intact. No clubbing or cyanosis. NEUROLOGICAL: Normal speech, normal gait. PSYCH: Normal mood, normal affect. SKIN: Warm, Dry, normal turgor, no rashes or lesions noted. Limitations: no limitations Course Vital Signs 10/18/19 10/18/19 16:28 17:44 Temperature 98.6 F 97.8 F Pulse Rate 72 78 Respiratory 18 16 Rate Blood Pressure 145/91 148/70 O2 Sat by Pulse 100 98 Oximetry Medical Decision Making - Medical Decision Making Patient is a 44-year-old female here for bilateral ankle and swelling 2 days. She had recent breast augmentation and tummy tuck one month ago and has been recovering well. She has been sleeping upright in a recliner since the procedure and needs to do so for an additional 4 weeks. Patient's exam is unremarkable there is no significant swelling of her bilateral lower legs, there is some very mild swelling of bilateral lower ankles. I discussed with patient at the swelling is most likely related to being in inclined position and being less active. There is low suspicion for DVT. She has no chest pain, shortness of breath. Patient does not do elevation of her legs. We discussed elevating her legs during the day as well as doing ankle pumps. She may also try compression leg being's. Patient is agreement with this plan of care. Discharg ed. She will follow up with her surgeon as needed. Return parameters were discussed with the patient and she verbalized understanding. Case discussed with Dr. Alonso. Disposition Clinical Impression: Bilateral swelling of feet and ankles Disposition: HOME SELF-CARE Condition: Stable Instructions (If sedation given, give patient instructions): Edema (ED) Additional Instructions: Please return to the Emergency Department if symptoms worsen or any other concerns. Continue to elevate your legs, do ankle pumps to increase circulation. Trial of compression socks and walking more often. Increase water intake. Follow up with doctor. Is patient prescribed a controlled substance at d/c from ED?: No Referrals: Nonstaff,Physician [Primary Care Provider] - 1-2 days
[2019-10-18 17:45] VITALS: BP 148/70; PULSE 78; RESP 16; TEMP 97.8
== END 2019-10-18 17:44 | disposition home or self-care (01) ==
LOC: EC 16:17
DX: M79.89 Other specified soft tissue disorders (principal); F41.9 Anxiety disorder, unspecified; Z87.891 Personal history of nicotine dependence; Z79.899 Other long term (current) drug therapy; Z98.890 Other specified postprocedural states
CPT/HCPCS: 99283

== ENCOUNTER 2020-05-20 10:14 | Emergency (ER) | payer MEDICARE, OTHER ==
[2020-05-20 10:23] VITALS: TEMP 98.4
--- NOTE | 2020-05-20 10:46 | ED ---
Fall HPI - General Chief Complaint: Fall Stated Complaint: slip & fall/shoulder injury Time Seen by Provider: 05/20/20 10:25 Source: patient Mode of arrival: ambulatory - History of Present Illness Initial Comments: 45-year-old female presenting today for chief complaint of right shoulder pain after fall. Patient states she fell onto her back at the elbows straight. Patient states she jammed her right shoulder when this happened she states she has no other pains denies hitting her head denies neck pain low back pain patient denies any pain in the hips or lower extremities. Patient denies loss of sensation chest pain shortness of breath. Patient denies inability to move wrist and digits or at the elbow. Patient is no additional complaints upon arrival patient appears well and nontoxic no acute distress - Related Data Home Medications Medication Instructions Recorded Confirmed ALPRAZolam [Xanax] 1 mg PO BID PRN 05/16/17 12/31/18 Allergies Allergy/AdvReac Type Severity Reaction Status Date / Time No Known Allergies Allergy Verified 05/20/20 11:30 Review of Systems ROS Statement: Those systems with pertinent positive or pertinent negative responses have been documented in the HPI. ROS Other: All systems not noted in ROS Statement are negative. Past Medical History Past Medical History: GERD/Reflux, Hypertension History of Any Multi-Drug Resistant Organisms: None Reported Past Surgical History: Breast Surgery Additional Past Surgical History / Comment(s): tummy tuck Past Anesthesia/Blood Transfusion Reactions: No Reported Reaction Past Psychological History: Anxiety Smoking Status: Never smoker Past Alcohol Use History: None Reported Past Drug Use History: Marijuana - Past Family History Mother Family Medical History: Diabetes Mellitus, Hypertension, Rheumatoid Arthritis (RA) Additional Family Medical History / Comment(s): Lupus General Exam - General Exam Comments Initial Comments: General: The patient is awake and alert, in no distress. Eye: Pupils are equal, round and reactive to light, extra-ocular movements are intact. No nystagmus. There is normal conjunctiva bilaterally. No signs of icterus. Ears, nose, mouth and throat: There are moist mucous membranes and no oral lesions. Neck: The neck is supple, there is no tenderness or JVD. Musculoskeletal: Normal inspection of the shoulder and scapula no scapular pain anterior shoulder pain patient is able to range however limited overhead secondary to pain. Strength intact at the shoulder elbow wrist and digits. Patient is able to make the okay fingers crossed thumbs-up and oppose the small digit and thumb.Sensation intact of the UE equal b/l including the badge region. Radial pulses equal bilaterally 2+. Neurological: A&O x 3. CN II-XII intact grossly, There are no obvious motor or sensory deficits. Coordination appears grossly intact. Speech is normal. Skin: Skin is warm and dry and no rashes or lesions are noted. Psychiatric: Cooperative, appropriate mood & affect, normal judgment. Limitations: no limitations Course Vital Signs 05/20/20 05/20/20 10:20 11:42 Temperature 98.4 F Pulse Rate 69 82 Respiratory 16 18 Rate Blood Pressure 113/77 119/84 O2 Sat by Pulse 100 98 Oximetry Medical Decision Making - Medical Decision Making XR (-)> Pain with overhead ROM, no scapula pain. Pt neurovascularly intact. Pt has no pain prior to falling. at this time no osseous process. pt is to f/u with orthopedic surgery if the pain is persistent. patient is agreeable to care plan and discharge at this time. Dr. Laird attending agreeable to care plan. Disposition Clinical Impression: Shoulder pain, Fall from slipping on ice Disposition: HOME SELF-CARE Condition: Good Instructions (If sedation given, give patient instructions): Shoulder Sprain (ED) Additional Instructions: Please use medication as discussed. Please follow-up with family doctor in the next 2 days. If symptoms persist please follow-up with orthopedic surgery. use sling for comfort. Please return to emergency room if the symptoms increase or worsen or for any other concerns. Is patient prescribed a controlled substance at d/c from ED?: No Referrals: Nonstaff,Physician [Primary Care Provider] - 1-2 days Time of Disposition: 11:56
--- NOTE | 2020-05-20 11:21 | XR ---
EXAMINATION TYPE: XR shoulder complete RT DATE OF EXAM: 05/20/2020 COMPARISON: NONE HISTORY: pain TECHNIQUE: Three views are submitted. FINDINGS: The osseous structures are intact. There is no acute fracture or dislocation. The AC joint is maint ained. Chronic rib deformity. IMPRESSION: 1. No acute process.
[2020-05-20] MEDS ORDERED: ACET/COD 300 MG/30 MG STARTER PACK 6 TAB BTL PO STA (11:29)
[2020-05-20 11:43] VITALS: BP 119/84; PULSE 82; RESP 18
== END 2020-05-20 11:43 | disposition home or self-care (01) ==
LOC: EC 10:14
DX: M25.511 Pain in right shoulder (principal); F41.9 Anxiety disorder, unspecified
CPT/HCPCS: 99283

== ENCOUNTER 2020-10-12 16:27 | Emergency (ER) | payer MEDICARE, OTHER ==
[2020-10-12 16:31] VITALS: TEMP 98.2
--- NOTE | 2020-10-12 16:50 | ED ---
General Adult HPI - General Chief complaint: Skin/Abscess/Foreign Body Stated complaint: Skin infection Source: patient, RN notes reviewed, old records reviewed Mode of arrival: ambulatory Limitations: no limitations - History of Present Illness Initial comments: 45-year-old black female patient presents to the emergency room with complaints of having her tattoos recolored in her left hand is swollen. Patient was concerned for infection. She denies any fevers, nausea, or vomiting. She states that the tattoos all healed well however the one on her left hand is bumpy. Patient states that she does have keloid scarring of her abdomen but none of the other tattoos healed this way. There is no pain or tenderness or erythema to the site. Patient also states that she would like to have a Kovic test today she is very worried that she has had some occasional diarrhea and headache but has never been tested for Kovic. Vital signs are stable. Patient is afebrile and well-appearing. -: week(s) (1) Location: upper extremity Radiation: non-radiation Consistency: constant Treatments Prior to Arrival: other (Bacitracin) - Related Data Home Medications Medication Instructions Recorded Confirmed ALPRAZolam [Xanax] 1 mg PO BID PRN 05/16/17 05/20/20 Allergies Allergy/AdvReac Type Severity Reaction Status Date / Time No Known Allergies Allergy Verified 10/12/20 16:31 Review of Systems ROS Statement: Those systems with pertinent positive or pertinent negative responses have been documented in the HPI. ROS Other: All systems not noted in ROS Statement are negative. Past Medical History Past Medical History: GERD/Reflux, Hypertension History of Any Multi-Drug Resistant Organisms: None Reported Past Surgical History: Breast Surgery Additional Past Surgical History / Comment(s): molly hawk Past Anesthesia/Blood Transfusion Reactions: No Reported Reaction Past Psychological History: Anxiety Smoking Status: Never smoker Past Alcohol Use History: None Reported Past Drug Use History: Marijuana - Past Family History Mother Family Medical History: Diabetes Mellitus, Hypertension, Rheumatoid Arthritis (RA) Additional Family Medical History / Comment(s): Lupus General Exam Limitations: no limitations General appearance: alert, in no apparent distress Head exam: Present: atraumatic, normocephalic, normal inspection Eye exam: Present: normal appearance, PERRL, EOMI. Absent: scleral icterus, conjunctival injection, periorbital swelling Pupils: Present: normal accommodation ENT exam: Present: normal exam, normal oropharynx, mucous membranes moist Neck exam: Present: normal inspection, full ROM. Absent: tenderness, meningismus, lymphadenopathy, thyromegaly Respiratory exam: Present: normal lung sounds bilaterally. Absent: respiratory distress, wheezes, rales, rhonchi, stridor, chest wall tenderness, accessory muscle use, decreased breath sounds, prolonged expiratory Cardiovascular Exam: Present: regular rate, normal rhythm, normal heart sounds. Absent: systolic murmur, diastolic murmur, rubs, gallop, clicks GI/Abdominal exam: Present: soft, normal bowel sounds, other (Abdominal keloid scarring). Absent: distended, tenderness, guarding, rebound, rigid Extremities exam: Present: normal inspection, full ROM, normal capillary refill. Absent: tenderness, pedal edema, joint swelling, calf tenderness Left Hand Wrist exam: Present: full ROM, other (Keloid scarring over the red areas of the tattoo that was done last Monday; ). Absent: tenderness, swelling, abrasion, laceration, ecchymosis, deformity, crepitus, dislocation, erythema Right Foot/Toe exam: Present: normal inspection (Scarring to the right lateral foot s/p fracture july 2020). Absent: tenderness Neurovascular tendon exam: Present: no vascular compromise. Absent: abnormal cap refill Back exam: Present: normal inspection, full ROM. Absent: tenderness, CVA tenderness (R), CVA tenderness (L), muscle spasm, paraspinal tenderness Neurological exam: Present: alert, oriented X3, CN II-XII intact Psychiatric exam: Present: normal affect, normal mood Skin exam: Present: warm, dry, intact, normal color. Absent: rash, cyanosis, diaphoretic, erythema, petechiae, pallor, mottled Course Vital Signs 10/12/20 16:29 Temperature 98.2 F Pulse Rate 83 Respiratory 20 Rate Blood Pressure 131/77 O2 Sat by Pulse 100 Oximetry Medical Decision Making - Medical Decision Making Patient presents to the emergency room with concerns of tattoo healing of her left hand. Patient states that it is raised in certain areas which appears to be keloid scarring. Patient does have keloid scars to her abdomen but states that in the past she has never scarred from tattoos. There is no erythema. She does not have any fevers. There is no drainage or tenderness. Patient also requesting Covid test because she did have some diarrhea and a headache and just wants to be sure. Patient's Covid test was negative. Patient is well-appearing vital signs are stable. Case discussed with Dr. Cavazos. - Lab Data Lab Results 10/12/20 Range/Units 17:02 Coronavirus (PCR) Not Detected (Not Detectd) Disposition Clinical Impression: Keloid scar Disposition: HOME SELF-CARE Condition: Good Instructions (If sedation given, give patient instructions): Abrasion (ED) Additional Instructions: Follow-up with dermatology as needed for keloid scarring. Continue using bacitracin to areas of tattoo that are still healing. Return if signs of infection including fevers, swelling or drainage. Your Covid test is negative today. Is patient prescribed a controlled substance at d/c from ED?: No Referrals: Nonstaff,Physician [Primary Care Provider] - 1-2 days Olivia Sterling MD [STAFF PHYSICIAN] - 1-2 days Time of Disposition: 17:45
[2020-10-12 17:57] VITALS: BP 128/88; PULSE 80; RESP 16
== END 2020-10-12 17:56 | disposition home or self-care (01) ==
LOC: EC 16:27
DX: L91.0 Hypertrophic scar (principal); I10 Essential (primary) hypertension; F41.9 Anxiety disorder, unspecified; K21.9 Gastro-esophageal reflux disease without esophagitis; F12.90 Cannabis use, unspecified, uncomplicated; Z79.899 Other long term (current) drug therapy; Z83.3 Family history of diabetes mellitus; Z82.49 Family history of ischemic heart disease and other diseases of the circulatory system; Z20.822 Contact with and (suspected) exposure to COVID-19
CPT/HCPCS: 87635; 99283

== ENCOUNTER 2020-12-18 12:24 | Emergency (ER) | payer MEDICARE, OTHER ==
[2020-12-18] MEDS ORDERED: SODIUM CHLORIDE 0.9% 1,000 ML IV ONE (14:22)
--- NOTE | 2020-12-18 14:32 | XR ---
EXAMINATION TYPE: XR chest 2V DATE OF EXAM: 12/18/2020 COMPARISON: 04/27/2019 HISTORY: cough TECHNIQUE: Frontal and lateral views of the chest are obtained. FINDINGS: There is no focal air space opacity. No evidence for pneumothorax. No pleural effusion. The cardiac silhouette size is within normal limits. The osseous structures are grossly intact. IMPRESSION: 1. No acute cardiopulmonary process.
[2020-12-18 15:37] LABS: Basophils % (A) 0 %; Eosinophils # (A) 0.1 k/uL (0-0.7); Eosinophils % (A) 2 %; HCT 43.2 % (34.0-46.0); HGB 14.4 gm/dL (11.4-16.0); Lymphocytes # (A) 2.1 k/uL (1.0-4.8); Lymphocytes % (A) 30 %; MCH 30.8 pg (25.0-35.0); MCHC 33.5 g/dL (31.0-37.0); MCV 92.1 fL (80.0-100.0); Mean Platelet Volume 7.5; Monocytes # (A) 0.5 k/uL (0-1.0); Monocytes % (A) 7 %; Neutrophils # (A) 4.3 k/uL (1.3-7.7); Neutrophils % (A) 60 %; Platelet Count 313 k/uL (150-450); RBC 4.69 m/uL (3.80-5.40); RDW 12.3 % (11.5-15.5); WBC 7.1 k/uL (3.8-10.6)
[2020-12-18 15:46] LABS: ALT 19 U/L (4-34); AST 29 U/L (14-36); African American GFR (CKD) >90 (>60 ml/min/1.73 sqM); Albumin 4.7 g/dL (3.5-5.0); Alkaline Phosphatase 100 U/L (38-126); Anion Gap 12 mmol/L; Blood Urea Nitrogen 10 mg/dL (7-17); Calcium 9.9 mg/dL (8.4-10.2); Carbon Dioxide 19 mmol/L (22-30); Chloride 107 mmol/L (98-107); Glucose 80 mg/dL (74-99); Non-African American GFR(CKD) >90 (>60 ml/min/1.73 sqM); Potassium 4.2 mmol/L (3.5-5.1); Sodium 138 mmol/L (137-145); Total Bilirubin 0.8 mg/dL (0.2-1.3); Total Protein 8.4 g/dL (6.3-8.2)
--- NOTE | 2020-12-18 16:09 | ED ---
URI HPI - General Chief Complaint: Upper Respiratory Infection Stated Complaint: flu symptoms Time Seen by Provider: 12/18/20 14:11 Source: patient, RN notes reviewed Mode of arrival: ambulatory Limitations: no limitations - History of Present Illness Initial Comments: 45-year-old female presents emergency Department chief complaint of does not feel well. Patient states she's had cough congestion bodyaches sore throat and ear pain. Patient states she feels like she hasn't wanted. Patient states she has not had COVID-19. Patient denies any sick contacts no abdominal complaints. Went to chest pain no weakness. - Related Data Home Medications Medication Instructions Recorded Confirmed ALPRAZolam [Xanax] 1 mg PO BID PRN 05/16/17 12/18/20 Previous Rx's Medication Instructions Recorded Azithromycin [Zithromax Z-pack (6 0 mg PO DIRECTED #1 packet 12/18/20 tabs)] Allergies Allergy/AdvReac Type Severity Reaction Status Date / Time No Known Allergies Allergy Verified 12/18/20 15:06 Review of Systems ROS Statement: Those systems with pertinent positive or pertinent negative responses have been documented in the HPI. ROS Other: All systems not noted in ROS Statement are negative. Past Medical History Past Medical History: GERD/Reflux, Hypertension History of Any Multi-Drug Resistant Organisms: None Reported Past Surgical History: Breast Surgery Additional Past Surgical History / Comment(s): tummy tuck Past Anesthesia/Blood Transfusion Reactions: No Reported Reaction Past Psychological History: Anxiety Smoking Status: Never smoker Past Alcohol Use History: None Reported Past Drug Use History: Marijuana - Past Family History Mother Family Medical History: Diabetes Mellitus, Hypertension, Rheumatoid Arthritis (RA) Additional Family Medical History / Comment(s): Lupus General Exam Limitations: no limitations General appearance: alert, in no apparent distress Head exam: Present: atraumatic, normocephalic, normal inspection Eye exam: Present: normal appearance, PERRL, EOMI. Absent: scleral icterus, conjunctival injection, periorbital swelling ENT exam: Present: normal exam, normal oropharynx, mucous membranes moist Neck exam: Present: normal inspection, full ROM. Absent: tenderness, meningismus, lymphadenopathy Respiratory exam: Present: normal lung sounds bilaterally. Absent: respiratory distress, wheezes, rales, rhonchi, stridor Cardiovascular Exam: Present: regular rate, normal rhythm, normal heart sounds. Absent: systolic murmur, diastolic murmur, rubs, gallop, clicks GI/Abdominal exam: Present: soft, normal bowel sounds. Absent: distended, tenderness, guarding, rebound, rigid Neurological exam: Present: alert, oriented X3, CN II-XII intact Course Vital Signs 12/18/20 12:39 Temperature 98.0 F Pulse Rate 59 L Respiratory 20 Rate Blood Pressure 135/87 O2 Sat by Pulse 99 Oximetry Medical Decision Making - Medical Decision Making Workup is negative for acute findings at this time, patient has a upper respir atory infection will be discharged in stable condition. - Lab Data Result diagrams: 12/18/20 15:19 12/18/20 15:19 Lab Results 12/18/20 12/18/20 12/18/20 Range/Units 12:44 15:19 15:19 WBC 7.1 (3.8-10.6) k/uL RBC 4.69 (3.80-5.40) m/uL Hgb 14.4 (11.4-16.0) gm/dL Hct 43.2 (34.0-46.0) % MCV 92.1 (80.0-100.0) fL MCH 30.8 (25.0-35.0) pg MCHC 33.5 (31.0-37.0) g/dL RDW 12.3 (11.5-15.5) % Plt Count 313 (150-450) k/uL MPV 7.5 Neutrophils % 60 % Lymphocytes % 30 % Monocytes % 7 % Eosinophils % 2 % Basophils % 0 % Neutrophils # 4.3 (1.3-7.7) k/uL Lymphocytes # 2.1 (1.0-4.8) k/uL Monocytes # 0.5 (0-1.0) k/uL Eosinophils # 0.1 (0-0.7) k/uL Basophils # 0.0 (0-0.2) k/uL Sodium 138 (137-145) mmol/L Potassium 4.2 (3.5-5.1) mmol/L Chloride 107 (98-107) mmol/L Carbon Dioxide 19 L (22-30) mmol/L Anion Gap 12 mmol/L BUN 10 (7-17) mg/dL Creatinine 0.65 (0.52-1.04) mg/dL Est GFR (CKD-EPI)AfAm >90 (>60 ml/min/1.73 sqM) Est GFR (CKD-EPI)NonAf >90 (>60 ml/min/1.73 sqM) Glucose 80 (74-99) mg/dL Calcium 9.9 (8.4-10.2) mg/dL Total Bilirubin 0.8 (0.2-1.3) mg/dL AST 29 (14-36) U/L ALT 19 (4-34) U/L Alkaline Phosphatase 100 (38-126) U/L Total Protein 8.4 H (6.3-8.2) g/dL Albumin 4.7 (3.5-5.0) g/dL Influenza Type A (PCR) Not Detected (Not Detectd) Influenza Type B (PCR) Not Detected (Not Detectd) RSV (PCR) Not Detected (Not Detectd) SARS-CoV-2 (PCR) Not Detected (Not Detectd) Disposition Clinical Impression: Acute upper respiratory infection Disposition: HOME SELF-CARE Condition: Stable Instructions (If sedation given, give patient instructions): Upper Respiratory Infection (ED) Additional Instructions: Please return to the Emergency Department if symptoms worsen or any other concerns. Prescriptions: Azithromycin [Zithromax Z-pack (6 tabs)] 0 mg PO DIRECTED #1 packet Is patient prescribed a controlled substance at d/c from ED?: No Referrals: Nonstaff,Physician [Primary Care Provider] - 1-2 days Time of Disposition: 16:09
[2020-12-18 16:42] VITALS: BP 122/78; PULSE 79; RESP 18; TEMP 98
== END 2020-12-18 16:41 | disposition home or self-care (01) ==
LOC: EC 12:24
DX: J06.9 Acute upper respiratory infection, unspecified (principal); I10 Essential (primary) hypertension; K21.9 Gastro-esophageal reflux disease without esophagitis; F41.9 Anxiety disorder, unspecified; F12.90 Cannabis use, unspecified, uncomplicated; Z20.822 Contact with and (suspected) exposure to COVID-19
CPT/HCPCS: 36415; 71046; 80053; 85025; 87636; 96360; 99283

== ENCOUNTER 2021-11-22 18:40 | Emergency (ER) | payer MEDICARE, OTHER ==
[2021-11-22 18:47] VITALS: RESP 20; TEMP 98.3
[2021-11-22] MEDS ORDERED: dexAMETHasone 2 MG TAB PO STA (19:47)
[2021-11-22] MEDS ORDERED: AZITHROMYCIN 500 MG TAB PO STA (19:47)
--- NOTE | 2021-11-22 19:53 | ED ---
General Adult HPI - General Chief complaint: Upper Respiratory Infection Stated complaint: URI Time Seen by Provider: 11/22/21 19:35 Source: patient, RN notes reviewed, old records reviewed Mode of arrival: ambulatory Limitations: no limitations - History of Present Illness Initial comments: Patient is a 46 year old female with past medical history remarkable for recurrent sinus infections, anxiety presents emergency Department complaining of upper respiratory congestion. Endorses nasal congestion, runny nose, sinus fullness sensation. Endorses sinus drainage coming coughs up white phlegm. Denies any chest discomfort or shortness of breath. Denies any stridor, difficulty breathing, difficulty in swallowing. Denies sore throat. Denies fevers, sick contacts. Was vaccinated for Covid. Presents over concern for possible sinus infection. - Related Data Home Medications Medication Instructions Recorded Confirmed ALPRAZolam [Xanax] 1 mg PO BID PRN 05/16/17 12/18/20 Previous Rx's Medication Instructions Recorded Azithromycin [Zithromax Z-pack (6 0 mg PO DIRECTED #1 packet 12/18/20 tabs)] Azithromycin [Zithromax] 250 mg PO DAILY 4 Days #4 tab 11/22/21 Allergies Allergy/AdvReac Type Severity Reaction Status Date / Time No Known Allergies Allergy Verified 11/22/21 18:46 Review of Systems ROS Statement: Those systems with pertinent positive or pertinent negative responses have been documented in the HPI. Review of Systems: CONST: Denies fever EYES: Denies blurry vision ENT: Endorses nasal condition C/V: Denies Chest pain RESP: Denies shortness of breath GI: Denies abdominal pain : Denies dysuria SKIN: Denies rash. MSK: Denies joint pain. NEURO: Denies headache ROS Other: All systems not noted in ROS Statement are negative. Past Medical History Past Medical History: GERD/Reflux, Hypertension History of Any Multi-Drug Resistant Organisms: None Reported Past Surgical History: Breast Surgery Additional Past Surgical History / Comment(s): tummy tuck Past Anesthesia/Blood Transfusion Reactions: No Reported Reaction Past Psychological History: Anxiety Smoking Status: Never smoker Past Alcohol Use History: None Reported Past Drug Use History: Marijuana - Past Family History Mother Family Medical History: Diabetes Mellitus, Hypertension, Rheumatoid Arthritis (RA) Additional Family Medical History / Comment(s): Lupus General Exam - General Exam Comments Initial Comments: General: Appears in no acute distress. HEAD: Normal with no signs of head trauma. EYES: EOMI ENT: Hearing grossly intact, normal oropharynx. No tenderness to palpation over the sinuses, maxillary or frontal. RESPIRATORY: Clear breath sounds bilaterally. No wheezes, rales, or rhonchi. No increased work of breathing. No hypoxia. C/V: Regular rate and rhythm. S1 and S2 auscultated. Peripheral pulses 2+ and intact throughout. ABD: Abdomen is nondistended EXT: No obvious deformity SKIN: No rashes or lesions observed on exposed skin. NEURO: Alert and oriented 4. Limitations: no limitations Course Vital Signs 11/22/21 18:44 Temperature 98.3 F Pulse Rate 79 Respiratory 20 Rate Blood Pressure 133/71 O2 Sat by Pulse 99 Oximetry Medical Decision Making - Medical Decision Making Based on the patient's presentation and physical exam, I'm concerned for upper respiratory infection. Covid test already obtained in triage and is negative. I did discuss with her she likely has a viral illness but she is requesting antibiotic as she has required in the past for her frequent sinusitis episodes. I do believe this is reasonable and she will be started on azithromycin. We'll provide her with a dose of Decadron as well. She was in agreement this plan. Instructed to follow-up with her PCP. Is already on decongestants at home for chronic sinusitis. Vital signs are within normal limits. I will provide the patient with a prescription for azithromycin. I instructed the patient to follow up with their PCP in the next 1-3 days. I explained that the patient should return to the emergency department if they experience any worsening symptoms. Strict return precautions were discussed with the patient. The patient expressed understanding of these instructions. I answered all questions that the patient had. The patient was discharged home in good condition with their prescriptions and follow up information. - Lab Data Lab Results 11/22/21 Range/Units 18:48 Coronavirus (PCR) Not Detected (Not Detectd) Disposition Clinical Impression: URI (upper respiratory infection) Disposition: HOME SELF-CARE Condition: Good Instructions (If sedation given, give patient instructions): Upper Respiratory Infection (ED) Prescriptions: Azithromycin [Zithromax] 250 mg PO DAILY 4 Days #4 tab Is patient prescribed a controlled substance at d/c from ED?: No Referrals: Nonstaff,Physician [Primary Care Provider] - 1-2 days Time of Disposition: 19:50
[2021-11-22 20:29] VITALS: BP 132/82; PULSE 69
== END 2021-11-22 20:30 | disposition home or self-care (01) ==
LOC: EC 18:40
DX: J06.9 Acute upper respiratory infection, unspecified (principal); I10 Essential (primary) hypertension; Z20.822 Contact with and (suspected) exposure to COVID-19
CPT/HCPCS: 87635; 99283; J8540

== ENCOUNTER → 2021-12-20 | Outpatient (CLI) | payer MEDICARE, OTHER ==
--- NOTE | 2021-12-20 09:46 | MM ---
Reason for Exam: Screening (asymptomatic). Baseline mammogram. Patient History: Menarche at age 14. First Full-Term at age 24. 2020, Bilateral Implants. Last menstrual period: 12/20/2021 Risk Values: Mackenzie 5 year model risk: 0.7%. NCI Lifetime model risk: 7.8%. Prior Study Comparison: Patient's first Mammogram. No prior studies available for comparison. Tissue Density: The breast tissue is heterogeneously dense. This may lower the sensitivity of mammography. Findings: Analyzed By CAD. There is no suspicious group of microcalcifications or suspicious mass in either breast. Bilateral breast implants. Overall Assessment: Benign, BI-RAD 2 Management: Screening Mammogram of both breasts in 1 year. A clinical breast exam by your physician is recommended on an annual basis and results should be correlated with mammographic findings. Electronically signed and approved by: Fei Jaime D.O.
== END | disposition home or self-care (01) ==
LOC: RADMAMWWP 08:06
DX: Z12.31 Encounter for screening mammogram for malignant neoplasm of breast (principal)
CPT/HCPCS: 77063; 77067

== ENCOUNTER 2022-07-31 08:41 | Emergency (ER) | payer MEDICARE, OTHER ==
[2022-07-31 09:03] VITALS: TEMP 97.9
--- NOTE | 2022-07-31 09:18 | XR ---
EXAMINATION TYPE: XR chest 2V DATE OF EXAM: 07/31/2022 COMPARISON: NONE HISTORY: Chest pain TECHNIQUE: Frontal and lateral views of the chest are obtained. FINDINGS: There is no focal air space opacity. No evidence for pneumothorax. No pleural effusion. The cardiac silhouette size is within normal limits. The osseous structures are grossly intact. IMPRESSION: 1. No acute cardiopulmonary process.
[2022-07-31] MEDS ORDERED: methylPREDNISolone SOD SUCCI 125 MG/2 ML VIAL IM ONE (09:42)
[2022-07-31] MEDS ORDERED: IPRATROPIUM-ALBUTEROL 3 ML NEB INHALATION STA (09:42)
--- NOTE | 2022-07-31 09:47 | ED ---
URI HPI - General Chief Complaint: Upper Respiratory Infection Stated Complaint: CHELSEY, Cough Time Seen by Provider: 07/31/22 09:31 Source: patient, RN notes reviewed Mode of arrival: ambulatory Limitations: no limitations - History of Present Illness Initial Comments: This is a 47-year-old female who presents to the emergency department for coughing, congestion, fatigue, and mild shortness of breath. States that the symptoms started 2 days ago, the day after she got back from [place]. Her nephew is sick with the same symptoms. Denies any fevers. Also denies any history of asthma or COPD. She has not taken anything to treat her symptoms at this point. Denies any fevers, chills, chest pain, palpitations, abdominal pain, nausea, vomiting, diarrhea, back pain, or headaches. MD Complaint: cough, sore throat, nasal congestion Onset/Timin -: days(s) Context: sick contacts, recent travel - Related Data Home Medications Medication Instructions Recorded Confirmed ALPRAZolam [Xanax] 1 mg PO BID PRN 05/16/17 12/18/20 Previous Rx's Medication Instructions Recorded Azithromycin [Zithromax Z-pack (6 0 mg PO DIRECTED #1 packet 12/18/20 tabs)] Azithromycin [Zithromax] 250 mg PO DAILY 4 Days #4 tab 11/22/21 Cephalexin [Keflex] 500 mg PO QID #28 cap 05/30/22 Albuterol Sulfate [Albuterol 1 puff PO Q4-6H PRN #8.5 gm 07/31/22 Sulfate Hfa] Promethazine/Dextromethorphan 5 ml PO Q4-6H PRN #473 ml 07/31/22 [Promethazine-Dm Syrup] predniSONE 50 mg PO DAILY 5 Days #5 tab 07/31/22 Allergies Allergy/AdvReac Type Severity Reaction Status Date / Time No Known Allergies Allergy Verified 07/31/22 09:03 Review of Systems ROS Statement: Those systems with pertinent positive or pertinent negative responses have been documented in the HPI. ROS Other: All systems not noted in ROS Statement are negative. Past Medical History Past Medical History: GERD/Reflux, Hypertension History of Any Multi-Drug Resistant Organisms: None Reported Past Surgical History: Breast Surgery Additional Past Surgical History / Comment(s): molly hawk Past Anesthesia/Blood Transfusion Reactions: No Reported Reaction Past Psychological History: Anxiety Smoking Status: Never smoker Past Alcohol Use History: None Reported Past Drug Use History: Marijuana - Past Family History Mother Family Medical History: Diabetes Mellitus, Hypertension, Rheumatoid Arthritis (RA) Additional Family Medical History / Comment(s): Lupus General Exam Limitations: no limitations General appearance: alert, in no apparent distress Head exam: Present: atraumatic, normocephalic, normal inspection Respiratory exam: Present: normal lung sounds bilaterally. Absent: respiratory distress, wheezes, rales, rhonchi, stridor Cardiovascular Exam: Present: regular rate, normal rhythm, normal heart sounds. Absent: systolic murmur, diastolic murmur, rubs, gallop, clicks Neurological exam: Present: alert, oriented X3, CN II-XII intact Psychiatric exam: Present: normal affect, normal mood Skin exam: Present: warm, dry, intact, normal color. Absent: rash Course Vital Signs 07/31/22 07/31/22 07/31/22 09:01 10:47 10:59 Temperature 97.9 F Pulse Rate 95 77 70 Respiratory 18 16 16 Rate Blood Pressure 124/107 O2 Sat by Pulse 99 Oximetry 07/31/22 11:19 Temperature Pulse Rate 89 Respiratory 18 Rate Blood Pressure 130/82 O2 Sat by Pulse 99 Oximetry Medical Decision Making - Medical Decision Making This is a 47-year-old female who presents to the emergency department for coughing and congestion. Was pt. sent in by a medical professional or institution? @ -No Did you speak to anyone other than the patient for history? @ -No Did you review nursing and triage notes? @ -Yes, and I agree, it is accurate with regards to the patient's symptoms. Were old charts reviewed? @ -No Differential Diagnosis? @ -Differential Cough: Influenza, Covid, RSV, croup, allergic rhinitis, GERD, pneumonia, bronchitis, COPD, viral pharyngitis, streptococcal pharyngitis, this is not meant to be an all-inclusive list. X-rays interpreted by me (1pt min.)? @ -Chest x-ray obtained, my interpretation identifies no localized consolidations or infiltrates. What testing was considered but not performed? (CT, X-rays, U/S, labs)? Why? @ -None What meds were considered but not given? Why? @ -None Did you discuss the management of the patient with other professionals? @ -No Did you reconcile home meds? @ -No Was smoking cessation discussed for >3mins.? @ -No Was critical care preformed (if so, how long)? @ -No Were there social determinants of health that impacted care today? How? (Homelessness, low income, unemployed, alcoholism, drug addiction, transportation, low edu. Level, literacy, decrease access to med. care, alf, rehab)? @ -No Was there de-escalation of care discussed even if they declined? (Discuss DNR or withdrawal of care, Hospice)? @ -No What co-morbidities impacted this encounter? (DM, HTN, Smoking, COPD, CAD, Cancer, CVA, Hep., AIDS, mental health diagnosis, sleep apnea, morbid obesity)? @ -None Was patient admitted / discharged? @ -Discharged. Chest x-ray negative for any acute process. She tested negative for Covid, influenza, and RSV. She was given IM Solu-Medrol and a DuoNeb breathing treatment was administered. She did note relief following the breathing treatment. Advised the patient that this is most likely a bronchitis. Prescription for prednisione, Albuterol inhaler, and promethazine DM cough syrup provided with dosing instructions reviewed. Otherwise advised she remain well-hydrated and continue with symptomatic management. Undiagnosed new problem with uncertain prognosis? @ -None Drug Therapy requiring intensive monitoring for toxicity (Heparin, Nitro, Insulin, Cardizem)? @ -None Were any procedures done? @ -None Diagnosis/symptom? @ -Bronchitis Acute, or Chronic, or Acute on Chronic? @ -Acute Uncomplicated (without systemic symptoms) or Complicated (systemic symptoms)? @ -Uncomplicated Side effects of treatment? @ -None Exacerbation, Progression, or Severe Exacerbation] @ -Not applicable Poses a threat to life or bodily function? @ -No Return precautions reviewed in depth, the patient is instructed to return to the emergency department with any new, worsening, or concerning symptoms. Patient verbalized understanding. This case was discussed in detail with the attending ED physician, Dr. Restrepo. Presentation, findings, and treatment plan discussed in detail as well. - Lab Data Lab Results 07/31/22 Range/Units 09:07 Influenza Type A (PCR) Not Detected (Not Detectd) Influenza Type B (PCR) Not Detected (Not Detectd) RSV (PCR) Not Detected (Not Detectd) SARS-CoV-2 (PCR) Not Detected (Not Detectd) - Radiology Data Radiology results: report reviewed, image reviewed Disposition Clinical Impression: Bronchitis Disposition: HOME SELF-CARE Instructions (If sedation given, give patient instructions): Acute Bronchitis (ED) Additional Instructions: Return to the emergency department with any new, worsening, or concerning symptoms. Take the prednisone daily for 5 days. Take the first dose tomorrow, as you received a steroid shot in the emergency department. You can use the cough medication and albuterol inhaler every 4-6 hours as needed. Otherwise continue with supportive care. Follow up with your primary care provider in 1-2 days. Prescriptions: Albuterol Sulfate [Albuterol Sulfate Hfa] 1 puff PO Q4-6H PRN #8.5 gm PRN Reason: Shortness Of Breath predniSONE 50 mg PO DAILY 5 Days #5 tab Promethazine/Dextromethorphan [Promethazine-Dm Syrup] 5 ml PO Q4-6H PRN #473 ml PRN Reason: Cough Is patient prescribed a controlled substance at d/c from ED?: No Referrals: Nonstaff,Physician [Primary Care Provider] - 1-2 days
[2022-07-31 11:20] VITALS: BP 130/82; PULSE 89; RESP 18
== END 2022-07-31 11:19 | disposition home or self-care (01) ==
LOC: EC 08:41
DX: J40 Bronchitis, not specified as acute or chronic (principal); I10 Essential (primary) hypertension; F41.9 Anxiety disorder, unspecified; F12.90 Cannabis use, unspecified, uncomplicated; Z20.822 Contact with and (suspected) exposure to COVID-19
CPT/HCPCS: 99283; 96372; 94640; 87636; 71046; J2930

== ENCOUNTER 2023-04-07 08:53 | Emergency (ER) | payer MEDICARE, OTHER ==
[2023-04-07] MEDS ORDERED: ACETAMINOPHEN TAB 325 MG TAB PO STA (09:14)
[2023-04-07 09:55] VITALS: RESP 18
--- NOTE | 2023-04-07 09:59 | ED ---
General Adult HPI - General Chief complaint: Upper Respiratory Infection Stated complaint: congestion,headache Time Seen by Provider: 04/07/23 09:14 Source: patient, RN notes reviewed Mode of arrival: ambulatory Limitations: no limitations - History of Present Illness Initial comments: 47-year-old -[place] female with no significant past medical history presents the emergency department with chief complaint of respiratory symptoms. Patient reports headache, congestion, productive cough with yellow sputum and fever that started 2 days ago. She has not been taking any hlew-ael-oylzfmh remedies for her symptoms. She is unknown of any sick contacts. Denies any chest pain, palpitations, nausea or vomiting, abdominal pain - Related Data Home Medications Medication Instructions Recorded Confirmed ALPRAZolam [Xanax] 1 mg PO BID PRN 05/16/17 12/18/20 Previous Rx's Medication Instructions Recorded Azithromycin [Zithromax Z-pack (6 0 mg PO DIRECTED #1 packet 12/18/20 tabs)] Azithromycin [Zithromax] 250 mg PO DAILY 4 Days #4 tab 11/22/21 Cephalexin [Keflex] 500 mg PO QID #28 cap 05/30/22 Albuterol Sulfate [Albuterol 1 puff PO Q4-6H PRN #8.5 gm 07/31/22 Sulfate Hfa] Promethazine/Dextromethorphan 5 ml PO Q4-6H PRN #473 ml 07/31/22 [Promethazine-Dm Syrup] predniSONE 50 mg PO DAILY 5 Days #5 tab 07/31/22 Molnupiravir [Lagevrio (Eua)] 200 mg PO BID #10 cap 04/07/23 Allergies Allergy/AdvReac Type Severity Reaction Status Date / Time No Known Allergies Allergy Verified 04/07/23 09:12 Review of Systems ROS Statement: Those systems with pertinent positive or pertinent negative responses have been documented in the HPI. ROS Other: All systems not noted in ROS Statement are negative. Past Medical History Past Medical History: GERD/Reflux, Hypertension History of Any Multi-Drug Resistant Organisms: None Reported Past Surgical History: Breast Surgery Additional Past Surgical History / Comment(s): tummy tuck Past Anesthesia/Blood Transfusion Reactions: No Reported Reaction Past Psychological History: Anxiety Smoking Status: Current some day smoker Past Alcohol Use History: None Reported Past Drug Use History: Marijuana - Past Family History Mother Family Medical History: Diabetes Mellitus, Hypertension, Rheumatoid Arthritis (RA) Additional Family Medical History / Comment(s): Lupus General Exam - General Exam Comments Initial Comments: General: Alert, in no acute distress Head: atraumatic normocephalic. Eyes PERRL, EOMI intact, mucous membranes moist Respiratory: Lungs clear to auscultation bilaterally Cardiovascular: Regular rate and rhythm Abdominal: Soft without guarding or rebound Extremities: Normal inspection with full range of motion and normal capillary refill Neuroogic: alert and oriented 3, CN II-XII intact, able to ambulate with steady gait Skin: warm dry and intact with normal color Limitations: no limitations Course Vital Signs 04/07/23 04/07/23 09:08 10:35 Temperature 99.8 F H 99.1 F Pulse Rate 102 H 97 Respiratory 18 18 Rate Blood Pressure 138/91 130/79 O2 Sat by Pulse 100 100 Oximetry Medical Decision Making - Medical Decision Making Was pt. sent in by a medical professional or institution (, PA, INTERVENTION NURSE, urgent care, hospital, or [facility]...) When possible be specific @ -[No] Did you speak to anyone other than the patient for history (EMS, parent, family, police, friend...)? What history was obtained from this source @ -[No] Did you review nursing and triage notes (agree or disagree)? Why? @ -[I reviewed and agree with nursing and triage notes] Were old charts reviewed (outside hosp., previous admission, EMS record, old EKG, old radiological studies, urgent care reports/EKG's, [facility] records)? Report findings @ -[No old charts were reviewed] Differential Diagnosis (chest pain, altered mental status, abdominal pain women, abdominal pain men, vaginal bleeding, weakness, fever, dyspnea, syncope, headache, dizziness, GI bleed, back pain, seizure, CVA, palpatations, mental health, musculoskeletal)? @ -[not applicable] EKG interpreted by me (3pts min.). @ -[As above] X-rays interpreted by me (1pt min.). @ Chest x-ray does not reveal any focal consolidation or cardiomegaly CT interpreted by me (1pt min.). @ -[None done] U/S interpreted by me (1pt. min.). @ -[None done] What testing was considered but not performed or refused? (CT, X-rays, U/S, labs)? Why? @ -[None] What meds were considered but not given or refused? Why? @ -[None] Did you discuss the management of the patient with other professionals (professionals i.e. , PA, INTERVENTION NURSE, lab, RT, psych nurse, social service technician, broadcast director operations, teacher, dispatch officer, outsole caser)? Give summary @ -[No] Was smoking cessation discussed for >3mins.? @ -[No] Was critical care preformed (if so, how long)? @ -[No] Were there social determinants of health that impacted care today? How? (Homelessness, low income, unemployed, alcoholism, drug addiction, transportation, low edu. Level, literacy, decrease access to med. care, [facility], rehab)? @ -[No] Was there de-escalation of care discussed even if they declined (Discuss DNR or withdrawal of care, Hospice)? DNR status @ -[No] What co-morbidities impacted this encounter? (DM, HTN, Smoking, COPD, CAD, Cancer, CVA, ARF, Chemo, Hep., AIDS, mental health diagnosis, sleep apnea, morbid obesity)? @ -[None] Was patient admitted / discharged? Hospital course, mention meds given and route, prescriptions, significant lab abnormalities, going to OR and other pertinent info. @ -Discharged. This is a pleasant 47-year-old female is currently who presents the emergency department with cough. Patient had a thorough history and physical exam performed on the ED. Physical exam is essentially unremarkable. Heart rate regular rate and rhythm lungs clear to auscultation bilaterally abdomen soft and non-tender. She is Covid positive. Patient provided Tylenol while in the ED. Patient provided prescription for Mulnovinir Discharged in stable condition. Recommend close follow-up with PCP in 1-2 days. Return precautions were discussed at length. Discharged in stable condition. Case is discussed with Dr. Ansari, ED attending who agrees with plan of care Undiagnosed new problem with uncertain prognosis? @ -[No] Drug Therapy requiring intensive monitoring for toxicity (Heparin, Nitro, Insulin, Cardizem)? @ -[No] Were any procedures done? @ -[No] Diagnosis/symptom? @ COVID-19 Acute, or Chronic, or Acute on Chronic? @ -Acute Uncomplicated (without systemic symptoms) or Complicated (systemic symptoms)? @ -Complicated Side effects of treatment? @ -[No] Exacerbation, Progression, or Severe Exacerbation? @ -[No] Poses a threat to life or bodily function? How? (Chest pain, USA, [place], pneumonia, PE, COPD, DKA, ARF, appy, cholecystitis, CVA, Diverticulitis, Homicidal, Suicidal, threat to staff... and all critical care pts) @ -Low likelihood - Lab Data Lab Results 04/07/23 Range/Units 09:17 Influenza Type A (PCR) Not Detected (Not Detectd) Influenza Type B (PCR) Not Detected (Not Detectd) RSV (PCR) Not Detected (Not Detectd) SARS-CoV-2 (PCR) Detected A (Not Detectd) Disposition Clinical Impression: Cough, COVID-19 Disposition: HOME SELF-CARE Condition: Stable Instructions (If sedation given, give patient instructions): Coronavirus Disease 2019 (COVID-19), Face Coverings (Masks) and COVID-19 (ED), Long COVID (ED) Prescriptions: Molnupiravir [Lagevrio (Eua)] 200 mg PO BID #10 cap Is patient prescribed a controlled substance at d/c from ED?: No Referrals: Nonstaff,Physician [Primary Care Provider] - 1-2 days Time of Disposition: 10:18
--- NOTE | 2023-04-07 10:12 | XR ---
EXAMINATION TYPE: XR chest 2V DATE OF EXAM: 04/07/2023 COMPARISON: 07/31/2022 HISTORY: 47-year-old female with cough and congestion, headache TECHNIQUE: PA and lateral views FINDINGS: The cardiomediastinal silhouette, aorta, and pulmonary vasculature are within normal limits. Lungs an d pleural spaces are clear. IMPRESSION: No acute cardiopulmonary process.
[2023-04-07 10:44] VITALS: BP 130/79; PULSE 97; TEMP 99.1
== END 2023-04-07 10:37 | disposition home or self-care (01) ==
LOC: EC 08:53
DX: U07.1 COVID-19 (principal); I10 Essential (primary) hypertension; F41.9 Anxiety disorder, unspecified; F12.90 Cannabis use, unspecified, uncomplicated; F17.200 Nicotine dependence, unspecified, uncomplicated; Z79.899 Other long term (current) drug therapy
CPT/HCPCS: 71046; 87636; 99284

== ENCOUNTER 2023-11-23 08:53 | Emergency (ER) | payer MEDICARE | END 2023-11-23 13:26 | disposition home or self-care (01) | LOC: EC 08:53 | DX: R59.9 Enlarged lymph nodes, unspecified (principal) | CPT/HCPCS: 99282 ==

== ENCOUNTER 2024-04-13 10:07 | Emergency (ER) | payer MEDICARE ==
[2024-04-13 10:24] VITALS: RESP 18
--- NOTE | 2024-04-13 11:02 | XR ---
EXAMINATION TYPE: XR chest 2V DATE OF EXAM: 04/13/2024 CLINICAL HISTORY: Cough and congestion TECHNIQUE: Frontal and lateral views of the chest are obtained. COMPARISON: Prior chest x-ray April 07, 2023 FINDINGS: There is no focal air space opacity, pleural effusion, or pneumothorax seen. The cardiac silhouette size is within normal limits. The osseous structures are intact. IMPRESSION: No acute pulmonary infiltrate. [facility], , 04/13/2024 11:00 AM
--- NOTE | 2024-04-13 11:08 | ED ---
URI HPI - General Chief Complaint: Upper Respiratory Infection Stated Complaint: weak SOB cough Time Seen by Provider: 04/13/24 10:24 Source: patient, RN notes reviewed Mode of arrival: ambulatory Limitations: no limitations - History of Present Illness Initial Comments: 48-year-old female presents emergency department with chief complaint of cough congestion body aches. Patient states symptoms started 2 to 3 days ago. She had increasing nasal congestion, productive cough. Patient states she is concerned she may have COVID-19. She states she had symptoms in the past for similar. She had no reported fevers denies any GI symptoms. - Related Data Home Medications Medication Instructions Recorded Confirmed ALPRAZolam [Xanax] 1 mg PO BID PRN 05/16/17 12/18/20 Previous Rx's Medication Instructions Recorded Azithromycin [Zithromax Z-pack (6 0 mg PO DIRECTED #1 packet 12/18/20 tabs)] Azithromycin [Zithromax] 250 mg PO DAILY 4 Days #4 tab 11/22/21 Cephalexin [Keflex] 500 mg PO QID #28 cap 05/30/22 Albuterol Sulfate [Albuterol 1 puff PO Q4-6H PRN #8.5 gm 07/31/22 Sulfate Hfa] Promethazine/Dextromethorphan 5 ml PO Q4-6H PRN #473 ml 07/31/22 [Promethazine-Dm Syrup] predniSONE 50 mg PO DAILY 5 Days #5 tab 07/31/22 Molnupiravir [Lagevrio (Eua)] 200 mg PO BID #10 cap 04/07/23 Allergies Allergy/AdvReac Type Severity Reaction Status Date / Time No Known Allergies Allergy Verified 04/13/24 10:21 Review of Systems ROS Statement: Those systems with pertinent positive or pertinent negative responses have been documented in the HPI. ROS Other: All systems not noted in ROS Statement are negative. Past Medical History Past Medical History: GERD/Reflux, Hypertension History of Any Multi-Drug Resistant Organisms: None Reported Past Surgical History: Breast Surgery Additional Past Surgical History / Comment(s): molly hawk Past Anesthesia/Blood Transfusion Reactions: No Reported Reaction Past Psychological History: Anxiety Smoking Status: Former smoker Past Alcohol Use History: None Reported Past Drug Use History: Marijuana - Past Family History Mother Family Medical History: Diabetes Mellitus, Hypertension, Rheumatoid Arthritis (RA) Additional Family Medical History / Comment(s): Lupus General Exam Limitations: no limitations General appearance: alert, in no apparent distress Head exam: Present: atraumatic, normocephalic, normal inspection Eye exam: Present: normal appearance, PERRL, EOMI. Absent: scleral icterus, conjunctival injection, periorbital swelling ENT exam: Present: normal exam, normal oropharynx, mucous membranes moist Neck exam: Present: normal inspection, full ROM. Absent: tenderness, meningismus, lymphadenopathy Respiratory exam: Present: normal lung sounds bilaterally. Absent: respiratory distress, wheezes, rales, rhonchi, stridor Cardiovascular Exam: Present: regular rate, normal rhythm, normal heart sounds. Absent: systolic murmur, diastolic murmur, rubs, gallop, clicks GI/Abdominal exam: Present: soft, normal bowel sounds. Absent: distended, tenderness, guarding, rebound, rigid Course Vital Signs 04/13/24 04/13/24 04/13/24 10:21 10:30 12:09 Temperature 97.9 F 98.1 F Pulse Rate 81 67 Respiratory 18 18 18 Rate Blood Pressure 132/92 148/93 O2 Sat by Pulse 99 99 Oximetry Medical Decision Making - Medical Decision Making Was pt. sent in by a medical professional or institution (, PA, EXPORT TRAFFIC DEPARTMENT MANAGER, urgent care, hospital, or intermediate...) When possible be specific @ -No Did you speak to anyone other than the patient for history (EMS, parent, family, police, friend...)? What history was obtained from this source @ -No Did you review nursing and triage notes (agree or disagree)? Why? @ -I reviewed and agree with nursing and triage notes Were old charts reviewed (outside hosp., previous admission, EMS record, old EKG, old radiological studies, urgent care reports/EKG's, intermediate records)? Report findings @ -No old charts were reviewed Differential Diagnosis (chest pain, altered mental status, abdominal pain women, abdominal pain men, vaginal bleeding, weakness, fever, dyspnea, syncope, headache, dizziness, GI bleed, back pain, seizure, CVA, palpatations, mental health, musculoskeletal)? @ -[COVID 19, RSV, influenza, pneumonia, acute bronchitis, URI, this list is not all inclusive EKG interpreted by me (3pts min.). @ -None X-rays interpreted by me (1pt min.). @ -Chest x-ray shows no acute cardiopulmonary process CT interpreted by me (1pt min.). @ -None done U/S interpreted by me (1pt. min.). @ -None done What testing was considered but not performed or refused? (CT, X-rays, U/S, labs)? Why? @ -None What meds were considered but not given or refused? Why? @ -None Did you discuss the management of the patient with other professionals (professionals i.e. , PA, EXPORT TRAFFIC DEPARTMENT MANAGER, lab, RT, psych nurse, social studies department chair, automation machine builder, teacher, marine safety officer, case maker)? Give summary @ -No Was smoking cessation discussed for >3mins.? @ -No Was critical care preformed (if so, how long)? @ -No Were there social determinants of health that impacted care today? How? (Homelessness, low income, unemployed, alcoholism, drug addiction, transportation, low edu. Level, literacy, decrease access to med. care, [facility], rehab)? @ -No Was there de-escalation of care discussed even if they declined (Discuss DNR or withdrawal of care, Hospice)? DNR status @ -No What co-morbidities impacted this encounter? (DM, HTN, Smoking, COPD, CAD, Cancer, CVA, ARF, Chemo, Hep., AIDS, mental health diagnosis, sleep apnea, m orbid obesity)? @ -None Was patient admitted / discharged? Hospital course, mention meds given and route, prescriptions, significant lab abnormalities, going to OR and other pertinent info. @ -Discharge patient negative viral swab, negative x-ray patient has a URI with discharged with supportive treatment Undiagnosed new problem with uncertain prognosis? @ -No Drug Therapy requiring intensive monitoring for toxicity (Heparin, Nitro, Insulin, Cardizem)? @ -No Were any procedures done? @ -No Diagnosis/symptom? @ -URI Acute, or Chronic, or Acute on Chronic? @ -Acute Uncomplicated (without systemic symptoms) or Complicated (systemic symptoms)? @ -Uncomplicated Side effects of treatment? @ -No Exacerbation, Progression, or Severe Exacerbation? @ -No Poses a threat to life or bodily function? How? (Chest pain, USA, CT, pneumonia, PE, COPD, DKA, ARF, appy, cholecystitis, CVA, Diverticulitis, Homicidal, Suicidal, threat to staff... and all critical care pts) @ -No - Lab Data Lab Results 04/13/24 Range/Units 10:34 Influenza Type A (PCR) Not Detected (Not Detectd) Influenza Type B (PCR) Not Detected (Not Detectd) RSV (PCR) Not Detected (Not Detectd) SARS-CoV-2 (PCR) Not Detected (Not Detectd) Disposition Clinical Impression: Acute upper respiratory infection Disposition: HOME SELF-CARE Condition: Stable Instructions (If sedation given, give patient instructions): Upper Respiratory Infection (ED) Additional Instructions: Please return to the Emergency Department if symptoms worsen or any other concerns. Is patient prescribed a controlled substance at d/c from ED?: No Referrals: Nonstaff,Physician [Primary Care Provider] - 1-2 days Time of Disposition: 12:04
[2024-04-13 12:10] VITALS: BP 148/93; PULSE 67; TEMP 98.1
== END 2024-04-13 12:10 | disposition home or self-care (01) ==
LOC: EC 10:07
DX: J06.9 Acute upper respiratory infection, unspecified (principal); Z87.891 Personal history of nicotine dependence
CPT/HCPCS: 71046; 87636; 99285